=== PATIENT | female | born 2000 | race Two or more races ===

== ENCOUNTER 2024-09-07 10:33 | Outpatient (OUT) | payer SELFPAY ==
--- OUTSIDE RECORDS SUMMARY | 2024-08-31 11:36 | XMS_ITS | CCD ---
Author Organization [facility] ion Partnership [facility] Care Team Providers Care Dynamics Ax Technical Architect Name Role Phone DANA ENCARNACION Unavailable Vignesh Leahy Unavailable Unavailable [place] Unavailable Unavail able Mari Mcdonald Primary Care Physician UnavailMari Dunaway Unavailable Unavailable Mari Mcdonlad Primary Care Physician Unavaila Melodie Herzog Unavailable Halle Brady Unavailable Stan Norma [place] Primary Care Provider [phone] HALLE BRADY Referring Unavailable BUSHRA ALEGRE Referring Unavailable STAN, MUHAMID M Primary Care Unavailable BUSHRA ALEGRE Referring Unavailable STAN, MUHAMID M Primary Care Unavailable STAN, MUHAMID M Attending Unavailable STAN, MUHAMID M Primary Care Unavailable STAN, MUHAMID M Attending Unavailable STAN, MUHAMID M Referring Unavailable STAN, MUHAMID M Primary Care Unavailable BUSHRA ALEGRE Attending Unavailable STAN, MUHAMID M Referring Unavailable STAN, MUHAMID M Primary Care Unavailable BUSHRA ALEGRE Attending Unavailable STAN, MUHAMID M Referring Unavailable STAN, MUHAMID M Primary Care Unavailable STAN, MUHAMID M Referring Unavailable STAN, MUHAMID M Primary Care Unavailable BUSHRA ALEGRE Referring Unavail able STAN, MUHAMID M Primary Care Unavailable MACMAIN BUSHRA M Referring Unavailable STAN, MUHAMID M Primary Care Unavailable MACMAIN, BUSHRA M Referring Unavailable STAN, MUHAMID M Primary Care Unavailable Allergies Allergy Classification Reported Allergen(s) Allergy Type Date of Onset Reaction(s) Facility (1 source) No Known Medication Allergies; Translations: [No Known Medication Allergies] Propensity to adverse reactions to drug (disorder) [facility] Repository Medications Current Medications Medication Drug Class(es) Dates Sig (Normalized) Sig (Original) amoxicillin 500 mg oral tablet (1 source) Penicillin-class Antibacterial Start: 05-07-2017 take 1 tablet by mouth every twelve hours Amoxicillin 500 MG 1 tablet Orally every 12 hrs for 10 day(s) Apr, Active dapsone 0.05 mg/mg topical gel (5 sources) Sulfone Start: 03-23-2024 dapsone (ACZONE) 5 % topical gel 1(ONE) APPLICATION(S) TOPICAL 2(TWO) TIMES A DAY 03/23/2024 Active doxycycline hyclate 100 mg oral capsule (2 sources) Tetracycline-class Drug Start: 06-04-2024 End: 06-11-2024 take 1 capsule by mouth in the morning, then take 1 capsule by mouth at bedtime doxycycline (VIBRAMYCIN) 100 mg capsule Indications: Chlamydia Take 1 capsule (100 mg total) by mouth in the morning and 1 capsule (100 mg total) before bedtime. Do all this for 7 days. 14 capsule 06/04/2024 06/11/2024 Active Norgestimate-Ethin yl Estradiol (10 sources) Progestin, Estrogen Start: 04-09-2024 take 1 tablet by mouth once daily Norgestimate-Ethi nyl Estradiol (Tri-Sprintec (28)) 0.18/0.215/0.25 mg-35 mcg (28) tablet Active 1 TAB PO Daily April 09, 2024 12:00am Start: 02-11-2024 norgestimate-e thinyl estradioL (ORTHO TRI-CYCLEN,TRINESSA) 0.18/0.215/0.25 mg-35 mcg (28) per tablet 02/11/2024 Active Start: 05-02-2020 take 1 tablet by laine th once daily Tri-Sprintec (28) 0.18/0.215/0.25 mg-35 mcg (28) oral tablet 05/02/2020 take 1 tablet by oral route once daily metroNIDAZOLE 0.0075 mg/mg vaginal gel (7 sources) Nitroimidazole Antimicrobial Start: 04-28-2024 metroNIDAZOLE (Metrogel VaginaL) 0.75 % (37.5mg/5 gram) vaginal gel Indications: Acute vaginitis One applicator intravaginal every night for 7 days 490 g 04/28/2024 Active omeprazole 20 mg delayed release oral capsule (5 sources) Proton Pump Inhibitor Start: 04-09-2024 omeprazo le (PriLOSEC) 20 mg capsule Take by mouth. 04/09/2024 Active Tri-Sprintec (2 sources) Tri-Sprintec Act milly Completed/Discontinued Medications Medication Drug Class(es) Dates Sig (Normalized) Sig (Original) clindamycin 0.01 mg/mg topical gel (2 sources) Lincosamide Antibacterial Start: 05-02-2020 clindamycin phosphate 1 % topical gel 05/02/2020 Apply thin layer to affected areas twice daily for acne. dexamethasone 1 mg/ml / tobramycin 3 mg/ml ophthalmic suspension (1 source) Aminoglycoside Antibacterial, Corticosteroid Start: 04-12-2016 take 1 drop(s) into the eye(s) every six hours TobraDex 0.3-0.1 % 1 drop into affected eye Ophthalmic every 6 hrs for 7 days Mar, Not-Taking fluconazole 200 mg oral tablet (2 sources) Azole Antifungal Start: 05-02-2020 take 1 tablet by mouth every week fluconazole 200 mg oral tablet 05/02/2020 Take 1 tablet by mouth once weekly for 4 weeks. fluocinolone acetonide 0.1 mg/ml topical oil (2 sources) Corticosteroid Start: 05-02-2020 fluocinolone 0.01 % topical oil 05/02/2020 Apply to affected areas on scalp every other day; leave on 2-8 hours before washing. salicylic acid 0.06 mg/mg topical gel (2 sources) Start: 05-09-2020 End: 05-09-2020 salicylic acid 6 % topical gel 05/09/2020 05/09/2020 Apply small amount to affected areas on scalp; let sit 2-8 hours before washing. Start: 05-02-2020 salicylic acid 6 % topical gel 05/02/2020 Apply small amount to affected areas on scalp; let sit 2-8 hours before washing. Problems Active Problems Problem Classification Problem Date Documented Date Episodic/Chronic Bacterial infection; unspecified site (5 sources) Chlamydial infection; Translations: [Chlamydial infection, unspecified] Onset: 06-04-2024 06-04-2024 Episodic Contraceptive and procreative management (2 sources) Oral contraception; Translations: [Encounter for surveillance of contraceptive pills] Onset: 06-03-2024 06-03-2024 Episodic Immunizations and screening for infectious disease (8 sources) Contact with and (suspected) exposure to other viral communicable diseases; Translations: [Patient encounter status] Onset: 05-10-2021 Resolved: 05-10-2021 Episodic Inflammatory diseases of female pelvic organs (1 source) Acute vaginitis; Translations: [Acute vaginitis] Onset: 04-28-2024 Episodic Lymphadenitis (8 sources) Lymphadenopathy; Translations: [Enlarged lymph nodes, unspecified] Onset: 04-14-2024 04-09-2024 Episodic Other infections; including parasitic (1 source) History of chlamydial infection; Translations: [Personal history of other infectious and parasitic diseases] 07-13-2024 Episodic Other infections; including parasitic (1 source) Personal history of other infectious and parasitic diseases; Translations: [Personal history of other infectious and parasitic diseases] Onset: 07-13-2024 Episodic Other inflammatory condition of skin (7 sources) Psoriasis; Translations: [Psoriasis, unspecified] Onset: 04-28-2024 04-28-2024 Chronic Other screening for suspected conditions (not mental disorders or infectious disease) (4 sources) Cancer cervix screening status; Translations: [Encounter for screening for malignant neoplasm of cervix] Onset: 06-03-2024 06-03-2024 Episodic Other skin disorders (3 sources) Acne vulgaris Onset: 05-02-2020 Episodic Other upper respiratory disease (1 source) Pain in throat Onset: 04-28-2024 Episodic Other upper respiratory infections (4 sources) Acute upper respiratory infection, unspecified; Translations: [Acute pharyngitis] Onset: 05-10-2021 Resolved: 05-10-2021 Episodic Screening and history of mental health and substance abuse codes (2 sources) Standardized adult depression screening tool completed ; Translations: [Encounter for screening for depression] Onset: 06-03-2024 06-03-2024 Episodic Unclassified (1 source) Screening for std Onset: 07-13-2024 Unclassified (1 source) Annual Exam Onset: 06-03-2024 Unclassified (1 source) Establish Care Onset: 04-28-2024 Past or Other Problems Problem Classification Problem Date Documented Date Episodic/Chronic Mood disorders (7 sources) Mood disorders Onset: 04-28-2024 Resolved: 06-03-2024 04-28-2024 Other and unspecified benign neoplasm (2 sources) Melanocytic nevi of trunk Onset: 05-02-2020 Episodic Other inflammatory condition of skin (3 sources) Other specified papulosquamous disorders Onset: 05-02-2020 Results Test Name Value Interpretation Reference Range Facility CHLAMYDIA/GC BY PCRon 2023 CHLAMYDIA/GC BY PCR SPECIMEN SOURCE CERVIX CHLAMYDIA DNA(PCR) Negative (qualifier value) Chlamydia trachomatis not detected by nucleic acid amplification. This does not exclude the possibility of infection because results are dependent on adequate specimen collection. GONORRHOEAE DNA(PCR) Negative (qualifier value) Neisseria gonorrhoeae not detected by nucleic acid amplification. This does not exclude the possibility of infection because results are dependent on adequate specimen collection. Normal [facility] Comment on above: Performed By: #### C BCA, CMP, 35899-3, TSHR, 5157-3, 5159-9, 5124-3, 39242-5 #### [facility] ([id number]) [address], [address] [place] [address] TRICHOMONAS PCRon 07-13-2024 TRICHOMONAS PCR SPECIMEN SOURCE VAGINAL TRICHOMONAS PCR Not detected (qualifier value) Trichomonas vaginalis not detected NOTE Assay methodology is nucleic acid amplification by real-time PCR for detection of Trichomonas vaginalis DNA performed on [employer] GeneXpert Instrument System. Normal [facility] Comment on above: Performed By: #### T RKPCR #### [facility] ([id number]) [address], [address] [place] [address] HBV surface Ag IA [facility] 06-09 HEPATITIS B SURF AG Negative Normal NEG [facility] Comment on above: Performed By: #### 5 196-1, 94892-0, 34356-7, 56252-4 #### [facility] ([id number]) [address], [address] [place] [address] HCV Ab IA Qlon 06-09-2024 ANTI HCV W/PCR REFLX Non-Reactive Normal NRCT [facility] Comment on above: Result Comment: If recent infection suspected, recommend repeat testing (>2 months). Ptdgoa-ya-tcmxwo ratio is <0.80. Performed By: #### 5 196-1, 46798-5, 48724-3, 45269-6 #### [facility] ([id number]) [address] [place] [address], [address] [place] [address] HIV 1+2 Ab+HIV1 p24 Ag IA Ql on 06-09-2024 HIV 1 and 2 Ab/Ag Screen Non-Reactive Normal NRCT [facility] Comment on above: Result Comment: This information has been disclosed to you from confidential records protected from disclosure by state law. You shall make no further disclosure of this information without the specific, written and informed release of the individual to whom it pertains, or as otherwise permitted by state law. A general authorization for the release of medical or other information is not sufficient for the purpose of the release of HIV test results or diagnoses. Performed By: #### 5 196-1, 04467-7, 27280-3, 29731-0 #### [facility] ([id number]) [address] [place] [address], [address] [place] [address] T. pallidum IgG+IgM IA Ql (S )on 06-09-2024 Syphilis Total <0.2 Normal 0.0-0.8 [facility] Comment on above: Result Comment: NON REACTIVE No serologic evidence of infection to Treponema pallidum (syphilis). Repeat testing may be considered in patients with suspected acute or primary syphilis in 2 to 4 weeks. Performed By: #### 5 196-1, 31512-9, 13182-8, 79259-7 #### [facility] ([id number]) [address] [place] [address], [address] [place] [address] CHLAMYDIA/GC PCR, FLon 06-03 CHLAMYDIA/GC PCR, [place] CHLAMYDIA PCR, [place] Positive (qualifier value) Chlamydia trachomatis detected by nucleic acid amplification. GONORRHOEAE PCR, [place] Negative (qualifier value) Neisseria gonorrhoeae not detected by nucleic acid amplification. This does not exclude the possibility of infection because results are dependent on adequate specimen collection. Normal [facility] Comment on above: Performed By: #### C GTPCR #### [facility] ([id number]) [address] [place] [address], [address] [place] [address] Cytologyon 06-03-2024 Cytology Normal [facility] Comment on above: Result Comment: [facility] [address] [place] [address] Gynecologic Cytology Consultation Patient Name:MARION HU:2000 (Age: 24)Gender:FTaken:4Reported:06/20/2024hysician(s):Bushra Alegre C.N.P. ([phone])Copy To: Rec. #:[id number]: #[id number] Final Cytologic Interpretation ThinPrep Pap Test (Cervical): Satisfactory for evaluation. A transformation zone component is present. NEGATIVE FOR INTRAEPITHELIAL LESION OR MALIGNANCY. Numerous neutrophilic leukocytes are present. lrd/06/20/2024 Interpretation performed at [facility] [employer], [address] [place] [address], License number: [id number]. Electronically Signed Out By [facility] [place], (ASCP) Date of Last Menstrual Period: 05/19/24 Other Clinical Conditions: Oral contraceptive Z12.4 Screening for malignant neoplasm of cervix Source of Specimen ThinPrep Pap Test (Cervical) Thin Prep Pap (UPFITTER) Fee Code(s): G0145 The Pap test is a screening test with an inherent, but low, probability of error. The Pap test is primarily effective for the diagnosis and prevention of squamous cell carcinoma. Regular screening is critical for prevention. ThinPrep liquid-based slides, which meet the Medical Education Manager criteria for automated screening, have been screened by the ThinPrep Imaging System (as of 03/31/07) along with an additional manual rescreening by a tooth cutter spur and, if indicated, by a pathologist. VAGINITIS PANEL PCRon 2023 VAGINITIS PANEL PCR BACT. VAGINOSIS DNA Not detected (qualifier value) Qualitative results are reported based on detection and quantitation of targeted organism markers which include: Lactobacillus spp. (L. crispatus and L. jensenii), Gardnerella vaginalis, Atopobium vaginae, Bacterial Vaginosis Associated Bacteria-2 (BVAB-2) and Megasphaera-1 ISELA SPECIES DNA Not detected (qualifier value) Isela species not detected include: C. albicans, C. tropicalis, C. parapsilosis or C. dubliniensis ISELA KRUSEI DNA Not detected (qualifier value) No Isela krusei detected ISELA GLABRATA DNA Not detected (qualifier value) No Isela glabrata detected TRICHOMONAS VAG DNA Not detected (qualifier value) No Trichomonas vaginalis detected NOTE BD MAX Vaginal Panel has not been evaluated for patients under 18 years old. Results for these patients should be reviewed and assessed in accordance with clinical presentation to determine patient diagnosis. Normal [facility] Comment on above: Performed By: #### V PPCR #### [facility] ([id number]) [address] [place] [address], [address] [place] [address] CBC AND AUTO DIFFon 05-06-20 24 ABSOLUTE BASOPHIL 0.1 X10E9/L Normal 0.0-0.2 [facility] Comment on above: Performed By: #### C BCA, CMP, 23234-3, TSHR, 5157-3, 5159-9, 5124-3, 22403-4 #### [facility] ([id number]) [address], [address] [place] [address] ABSOLUTE NEUTROPHIL 6.8 X10E9/L High 1.5-6.6 [facility] Comment on above: Performed By: #### C BCA, CMP, 28685-5, TSHR, 5157-3, 5159-9, 5124-3, 80845-5 #### [facility] ([id number]) [address], [address] [place] [address] Basophils/100 WBC (Bld) 0.7 % Normal [facility] Comment on above: Performed By: #### C BCA, CMP, 81097-3, TSHR, 5157-3, 5159-9, 5124-3, 91439-8 #### [facility] ([id number]) [address], [address] [place] [address] Eosinophils (Bld) [#/Vol] 0.2 10*3/uL Normal 0.0-0.4 [facility] Comment on above: Performed By: #### C BCA, CMP, 06729-5, TSHR, 5157-3, 5159-9, 5124-3, 49231-9 #### [facility] ([id number]) [address], [address] [place] [address] Eosinophils/100 WBC (Bld) 1.6 % Normal [facility] Comment on above: Performed By: #### C BCA, CMP, 18954-4, TSHR, 5157-3, 5159-9, 5124-3, 76076-9 #### [facility] ([id number]) [address] [address] [place] [address] Erythrocyte distribution width (RBC) [Ratio] 13.5 % Normal 11.5-15.0 [facility] Comment on above: Performed By: #### C BCA, CMP, 29622-6, TSHR, 5157-3, 5159-9, 5124-3, 88503-7 #### [facility] ([id number]) [address], [address] [place] [address] Hematocrit (Bld) [Volume fraction] 40.7 % Normal 35-47 [facility] Comment on above: Performed By: #### C BCA, CMP, 25145-6, TSHR, 5157-3, 5159-9, 5124-3, 34457-8 #### [facility] ([id number]) [address], [address] [place] [address] Hemoglobin (Bld) [Mass/Vol] 13.9 g/dL Normal 11.7-15.5 [facility] Comment on above: Performed By: #### C BCA, CMP, 19902-0, TSHR, 5157-3, 5159-9, 5124-3, 03665-8 #### [facility] ([id number]) [address], [address] [place] [address] Lymphocytes (Bld) [#/Vol] 2.3 10*3/uL Normal 1.0-3.5 [facility] Comment on above: Performed By: #### C BCA, CMP, 17685-9, TSHR, 5157-3, 5159-9, 5124-3, 84412-2 #### [facility] ([id number]) [address], [address] [place] [address] Lymphocytes/100 WBC (Bld) 23.1 % Normal [facility] Comment on above: Performed By: #### C BCA, CMP, 05220-6, TSHR, 5157-3, 5159-9, 5124-3, 70965-0 #### [facility] ([id number]) [address], [address] [place] [address] MCH (RBC) [Entitic mass] 31.1 pg Normal 27-34 [facility] Comment on above: Performed By: #### C BCA, CMP, 30160-6, TSHR, 5157-3, 5159-9, 5124-3, 13165-5 #### [facility] ([id number]) [address], [address] [place] [address] MCHC (RBC) [Mass/Vol] 34.2 g/dL Normal 32-36 [facility] Comment on above: Performed By: #### C BCA, CMP, 58149-9, TSHR, 5157-3, 5159-9, 5124-3, 43051-5 #### [facility] ([id number]) [address], [address] [place] [address] MCV (RBC) [Entitic vol] 91 fL Normal 80-100 [facility] Comment on above: Performed By: #### C BCA, CMP, 78120-4, TSHR, 5157-3, 5159-9, 5124-3, 17814-8 #### [facility] ([id number]) [address], [facility] [address] [place] [address] Monocytes (Bld) [#/Vol] 0.7 10*3/uL Normal 0-0.9 [facility] Comment on above: Performed By: #### C BCA, CMP, 47205-6, TSHR, 5157-3, 5159-9, 5124-3, 10665-5 #### [facility] ([id number]) [address], [address] [place] [address] Monocytes/100 WBC (Bld) 7.1 % Normal [facility] Comment on above: Performed By: #### C BCA, CMP, 31370-8, TSHR, 5157-3, 5159-9, 5124-3, 11623-8 #### [facility] ([id number]) [address], [facility] [address] [place] [address] Neutrophils/100 WBC (Bld) 67.5 % Normal [facility] Comment on above: Performed By: #### C BCA, CMP, 08469-6, TSHR, 5157-3, 5159-9, 5124-3, 42413-0 #### [facility] ([id number]) [address], [address] [place] [address] Platelet mean volume (Bld) [Entitic vol] 6.9 fL Low 7-12 [facility] Comment on above: Performed By: #### C BCA, CMP, 01398-9, TSHR, 5157-3, 5159-9, 5124-3, 99183-7 #### [facility] ([id number]) [address], [address] [address] Platelets (Bld) [#/Vol] 418 10*3/uL Normal 150-450 [facility] Comment on above: Performed By: #### C BCA, CMP, 41659-2, TSHR, 5157-3, 5159-9, 5124-3, 69572-9 #### [facility] ([id number]) [address], [address] [address] RBC COUNT 4.47 X10E12/L Normal 3.80-5.20 [facility] Comment on above: Performed By: #### C BCA, CMP, 02677-6, TSHR, 5157-3, 5159-9, 5124-3, 96710-7 #### [facility] ([id number]) [address], [address] [address] WBC (Bld) [#/Vol] 10.1 10*3/uL Normal 4.0-11.0 [facility] Comment on above: Performed By: #### C BCA, CMP, 76104-1, TSHR, 5157-3, 5159-9, 5124-3, 99941-0 #### [facility] ([id number]) [address], [address] [address] CMV IgG IA [facility] 05-06-2024 CYTOMEGALOVIRUS IgG <0.2 Normal <0.9 [facility] Comment on above: Result Comment: Interpretation-------- <0.9 Negative 0.9 - 1.0 Equivocal >1.0 Positive Performed By: #### C BCA, CMP, 97592-4, TSHR, 5157-3, 5159-9, 5124-3, 66581-9 #### [facility] ([id number]) [address] [address] CMV IgM IA Qlon 05-06-2024 CYTOMEGALOVIRUS IgM 0.3 AI Normal <0.9 [facility] Comment on above: Result Comment: Interpretation-------- <0.9 Negative 0.9 - 1.0 Equivocal >1.0 Positive NOTE The following results were obtained with the [employer] 2[address] ToRC IgM test. Results obtained from other [employer] assay methods may not be used interchangeably. Performed By: #### C BCA, CMP, 59085-8, TSHR, 5157-3, 5159-9, 5124-3, 91783-2 #### [facility] ([id number]) [address] [address] COMPREHENSIVE METABOLIC PANE [facility] 05-06-2024 Albumin [Mass/Vol] 4.2 g/dL Normal 3.2-5.3 [facility] Comment on above: Performed By: #### C BCA, CMP, 09570-1, TSHR, 5157-3, 5159-9, 5124-3, 13210-7 #### [facility] ([id number]) [address] [address] ALP [Catalytic activity/Vol] 50 U/L Normal 39-130 [facility] Comment on above: Performed By: #### C BCA, CMP, 25747-2, TSHR, 5157-3, 5159-9, 5124-3, 74871-8 #### [facility] ([id number]) [address] [address] [place] [address] ALT [Catalytic activity/Vol] 14 U/L Normal 0-31 [facility] Comment on above: Performed By: #### C BCA, CMP, 00638-4, TSHR, 5157-3, 5159-9, 5124-3, 38680-7 #### [facility] ([id number]) [address], [address] [place] [address] Anion gap [Moles/Vol] 9 mmol/L Normal 5-15 [facility] Comment on above: Performed By: #### C BCA, CMP, 32864-1, TSHR, 5157-3, 5159-9, 5124-3, 81213-6 #### [facility] ([id number]) [address], [address] [place] [address] AST [Catalytic activity/Vol] 16 U/L Normal 0-41 [facility] Comment on above: Performed By: #### C BCA, CMP, 43230-1, TSHR, 5157-3, 5159-9, 5124-3, 06905-9 #### [facility] ([id number]) [address], [address] [place] [address] Bilirubin [Mass/Vol] 0.4 mg/dL Normal 0.3-1.2 [facility] Comment on above: Performed By: #### C BCA, CMP, 34905-8, TSHR, 5157-3, 5159-9, 5124-3, 72660-0 #### [facility] ([id number]) [address], [address] [place] [address] Calcium [Mass/Vol] 9.0 mg/dL Normal 8.5-10.5 [facility] Comment on above: Performed By: #### C BCA, CMP, 34262-3, TSHR, 5157-3, 5159-9, 5124-3, 87031-5 #### [facility] ([id number]) [address], [address] [place] [address] Chloride [Moles/Vol] 103 mmol/L Normal 98-109 [facility] Comment on above: Performed By: #### C BCA, CMP, 84698-1, TSHR, 5157-3, 5159-9, 5124-3, 54559-3 #### [facility] ([id number]) [address], [address] [place] [address] CO2 [Moles/Vol] 25 mmol/L Normal 22-32 [facility] Comment on above: Performed By: #### C BCA, CMP, 21686-8, TSHR, 5157-3, 5159-9, 5124-3, 17530-4 #### [facility] ([id number]) [address], [address] [place] [address] Creatinine [Mass/Vol] 0.97 mg/dL Normal 0.40-1.00 [facility] Comment on above: Result Comment: METH OD TRACEABLE TO IDMS STANDARD Performed By: #### C BCA, CMP, 88485-3, TSHR, 5157-3, 5159-9, 5124-3, 99575-3 #### [facility] ([id number]) [address], [address] [place] [address] GFR/1.73 sq M.predicted among non-blacks MDRD (S/P/Bld) [Vol rate/Area] 85 mL/min/{1.73_m2} Normal >59 [facility] Comment on above: Result Comment: Reported eGFR is based on the CKD-EPI 2020 equation that does not use a race coefficient. Performed By: #### C BCA, CMP, 46341-7, TSHR, 5157-3, 5159-9, 5124-3, 88471-9 #### [facility] ([id number]) [address], [address] [place] [address] Glucose [Mass/Vol] 77 mg/dL Normal 65-99 [facility] Comment on above: Performed By: #### C BCA, CMP, 59892-5, TSHR, 5157-3, 5159-9, 5124-3, 10344-5 #### [facility] ([id number]) [address], [address] [place] [address] Potassium [Moles/Vol] 3.8 mmol/L Normal 3.5-5.0 [facility] Comment on above: Performed By: #### C BCA, CMP, 81640-6, TSHR, 5157-3, 5159-9, 5124-3, 79299-1 #### [facility] ([id number]) [address], [facility] [address] [place] [address] Protein [Mass/Vol] 6.9 g/dL Normal 6.0-8.0 [facility] Comment on above: Performed By: #### C BCA, CMP, 09027-7, TSHR, 5157-3, 5159-9, 5124-3, 85943-4 #### [facility] ([id number]) [address], [address] [place] [address] Sodium [Moles/Vol] 137 mmol/L Normal 134-146 [facility] Comment on above: Performed By: #### C BCA, CMP, 10956-8, TSHR, 5157-3, 5159-9, 5124-3, 85318-4 #### [facility] ([id number]) [address], [address] [place] [address] Urea nitrogen [Mass/Vol] 15 mg/dL Normal 5-23 [facility] Comment on above: Performed By: #### C BCA, CMP, 72491-3, TSHR, 5157-3, 5159-9, 5124-3, 05189-0 #### [facility] ([id number]) [address], [facility] [address] [place] [address] EBV capsid IgG IA Qn (S)on JATIN GAY VCA IgG 6.7 AI High <0.9 [facility] Comment on above: Result Comment: Interpretation-------- <0.9 Negative 0.9 - 1.0 Equivocal >1.0 Positive Performed By: #### C BCA, CMP, 61013-1, TSHR, 5157-3, 5159-9, 5124-3, 48369-6 #### [facility] ([id number]) [address] [facility] [place] [address] EBV capsid IgM IA Qn (S)on JATIN GAY VCA IgM 1.1 AI High <0.9 [facility] Comment on above: Result Comment: Interpretation-------- <0.9 Negative 0.9 - 1.0 Equivocal >1.0 Positive Performed By: #### C BCA, CMP, 09783-5, TSHR, 5157-3, 5159-9, 5124-3, 23762-3 #### [facility] ([id number]) [address] [facility] [place] [address] Lipid 1996 panelon 4 Cholesterol [Mass/Vol] 157 mg/dL Normal 150-200 [facility] Comment on above: Performed By: #### C BCA, CMP, 80837-5, TSHR, 5157-3, 5159-9, 5124-3, 37093-0 #### [facility] ([id number]) [address] [facility] [place] [address] Cholesterol in HDL [Mass/Vol] 72 mg/dL Normal >39 [facility] Comment on above: Result Comment: HDL <40 mg/dL - High Risk HDL > or = 40mg/dL- Desirable HDL >60 mg/dL - Negative Risk Performed By: #### C BCA, CMP, 25799-4, TSHR, 5157-3, 5159-9, 5124-3, 18326-5 #### [facility] ([id number]) [address], [address] [place] [address] Cholesterol in LDL [Mass/Vol] 67 mg/dL Normal <130 [facility] Comment on above: Result Comment: LDL <100 mg/dL - Desirable LDL >160 mg/dL - High Risk Performed By: #### C BCA, CMP, 13376-9, TSHR, 5157-3, 5159-9, 5124-3, 00712-5 #### [facility] ([id number]) [address], [address] [place] [address] Cholesterol in VLDL [Mass/Vol] 18 mg/dL Normal 0-30 [facility] Comment on above: Performed By: #### C BCA, CMP, 29055-3, TSHR, 5157-3, 5159-9, 5124-3, 59112-2 #### [facility] ([id number]) [address], [address] [place] [address] CHOLESTEROL:HDL 2.2 Normal 1.0-5.0 [facility] Comment on above: Performed By: #### C BCA, CMP, 41153-8, TSHR, 5157-3, 5159-9, 5124-3, 14093-9 #### [facility] ([id number]) [address], [address] [place] [address] Triglyceride [Mass/Vol] 88 mg/dL Normal 27-150 [facility] Comment on above: Performed By: #### C BCA, CMP, 79272-3, TSHR, 5157-3, 5159-9, 5124-3, 06215-1 #### [facility] ([id number]) [address], [address] [place] [address] TSH WITH REFLEXon 05-06-2024 TSH 1.04 uIU/mL Normal 0.49-4.67 [facility] Comment on above: Performed By: #### C BCA, CMP, 50666-6, TSHR, 5157-3, 5159-9, 5124-3, 88450-7 #### [facility] ([id number]) [address], [address] [place] [address] US THYROIDon 04-16-2024 US THYROID US THYROID CLINICAL INFORMATION: Swelling of lymph nodes. The right submandibular lump, sore throat for several weeks TECHNIQUE: Real time sonography of the thyroid gland performed. COMPARISON: No relevant prior studies available. FINDINGS: Thyroid size: Normal Right thyroid lobe measures: 4.3 x 1.2 x 1.9 cm Left thyroid lobe measures: 4.7 x 1.2 x 1.5 cm Isthmus measures 0.2 cm. Overall thyroid texture: Homogeneous 0.3 cm cyst within the superior left thyroid lobe. TR 1 and does not require dedicated follow-up. In the right submandibular region, there is a 3.2 x 1.6 x 0.7 cm lymph node with preserved fatty hilum and hilar flow on color Doppler. No suspicious features. IMPRESSION: * Prominent lymph node in the right submandibular lesion without suspicious features. Most likely reactive in the setting of recent sore throat. Less likely but may be infectious, inflammatory, granulomatous, or neoplastic. Close clinical follow-up recommended to document resolution within 6 weeks. * Unremarkable sonographic appearance of the thyroid. Approved by Resident Carlos Loving MD on 04/16/2024 8:07 AM I, Ulysses Wallis MD have personally reviewed the image(s) and agree with and/or edited the report Finalized by Ulysses Wallis MD on 04/16/2024 8:46 AM Normal [facility] COVID Quick Testingon 2020 Result Negative [email or web address] Other Ambulatory Patient Education on 08-09-2017 Ambulatory Patient Education Patient Education MaterialsName: Marion Hu Current Date: 08/09/2017 19:54:17 [place] 2000 following sheet(s) are the Patient Education Leaflets for Marion HuAmbulatoryContact DermatitisContact dermatitis is a skin rash caused by something that touches the skin and makes it irritated and inflamed. Your skin may be red, swollen, dry, and may be cracked. Blisters may form and ooze. The rash will itch.Contact dermatitis can form on the face and neck, backs of hands, forearms, genitals, and lower legs.People can get contact dermatitis from lots of sources. These include:? Plants such as poison alena, oak, or sumac? Chemicals in hair dyes and rinses, soaps, solvents, waxes, fingernail mongolian, and deodorants? Jewelry or watchbands made of nickelContact dermatitis is not passed from person to person.Talk with your healthcare provider about what may have caused the rash. A type of allergy testing called patch testing may be used to discover what you are allergic to. You will need to avoid the source of your rash in the future to prevent it from coming back.Treatment is done to relieve itching and prevent the rash from coming back. The rash should go away in a few days to a few weeks.Home careYour healthcare provider may prescribe medicine to relieve swelling and itching. Follow all instructions when using these medicines.General care:? Avoid anything that heats up your skin, such as hot showers or baths, or direct sunlight. This can make itching worse.? Apply cold compresses to soothe your sores to help relieve your symptoms. Do this for 30 minutes 3 to 4 times a day. You can make a cold compress by soaking a cloth in cold water. Squeeze out excess water. You can add colloidal oatmeal to the water to help reduce itching. For severe itching in a small area, apply an ice pack wrapped in a thin towel. Do this for 20 minutes 3 to 4 times a day.? You can also try wet dressings. One way to do this is to wear a wet piece of clothing under a dry one. Wear a damp shirt under a dry shirt if your upper body is affected. This can relieve itching and prevent you from scratching the affected area.? You can also help relieve large areas of itching by taking a lukewarm bath with colloidal oatmeal added to the water.? Use hydrocortisone cream for redness and irritation, unless another medicine was prescribed. You can also use benzocaine anesthetic cream or spray. Calamine lotion can also relieve mild symptoms.? Use oral diphenhydramine to help reduce itching. You can buy this antihistamine at drug and grocery stores. It can make you sleepy, so use lower doses during the daytime. Or you can use loratadine. This is an antihistamine that will not make you sleepy. Do not use diphenhydramine if you have glaucoma or have trouble urinating due to an enlarged prostate.? If a plant causes your rash, make sure to wash your skin and the clothes you were wearing when you came into contact with the plant. This is to wash away the plant oils that gave you the rash and prevent more or worse symptoms.? Stay away from the substance or object that causes your symptoms. If you can't avoid it, wear gloves or some other type of protection.Follow-up careFollow up with your healthcare provider, or as advised.When to seek medical adviceCall your healthcare provider right away if any of these occur:? Spreading of the rash to other parts of your body? Severe swelling of your face, eyelids, mouth, throat or tongue? Trouble urinating due to swelling in the genital area? Fever of 100.4?F (38?C) or higher? Redness or swelling that gets worse? Pain that gets worse? Foul-smelling fluid leaking from the skin? Yellow-brown crusts on the open blisters? [id number] The [employer]. [address] [place] [address], [place] [address]. All rights reserved. This information is not intended as a substitute for professional medical care. Always follow your healthcare professional's instructions. Normal [facility] Urgent Care Office/Clinic No angelo 08-09-2017 Urgent Care Office/Clinic Note Chief Complaint Rash on neck for over 2 weeks. Denies changing diet, soaps, detergents, creams.History of Present Illness Patient presents today complaining of 2 week history of rash to anterior neck and anterior chest. Denies new soaps, lotions, or medications. States that symptoms started become worse when she applied tea tree oil to the areas. Admits to pruritus at that time. States her skin is usually pretty sensitive.Review of Systems General: The patient denies fever, no unexplained changes in weight, fatigue, headache or dizziness. HEENT: denies changes in hearing, ear pain, rhinorrhea, sinus pressure. Denies productive cough. Denies double vision, blurred vision or eye pain. Cardiovascular: No chest pain, arrhythmia, or palpitations Pulmonary: No shortness of breath, wheezing, or dry cough GI: No nausea, vomiting or diarrhea. No abdominal discomfortPhysical Exam Vitals & Measurements T: 36.7 ?C (Oral) RR: 18 BP: 112/72 SpO2: 98 HT: 161 cm WT: 53 kg DOSE WT: 53 kg BMI: 20.45 Gen.: Atraumatic normocephalic. Dressed appropriate for season. No acute distress. Eye: Free of drainage. CV: RRR, S1,S2, free of rubs murmurs or gallops Resp: Lungs clear to auscultation bilaterally, free of adventitious breath sounds. Anterior chest and neck: Erythematous flat lesions are noted. No particular pattern or shakes. No vesicles, pustules or palpable lesions. Skin is very dry in the area due to application of tpwd-[id number]-[id number] ointments. Additional Vitals Body Mass Index Measured: 20.45 kg/m2 Peripheral Pulse Rate: 74 bpmAssessment/Plan 1. Contact dermatitis Take medication as directed. To apply Vaseline to area within 3 minutes of shower. To follow-up with pbx repairer if no improvements. If severe symptoms may go to ER. Ordered: triamcinolone topical, 1 kit, Topical, BID, X 14 days, # 30 g, 0 Refill(s), 08/23/17 19:49:00 EST, Pharmacy: [id number] List/Past Medical History Ongoing No chronic problems Historical No qualifying dataMedications triamcinolone 0.1% topical cream, 1 kit, Topical, BIDAllergies No Known Medication AllergiesSocial History Tobacco Never smokerFamily History Family history is unknownDiagnostic Results No qualifying data available. No qualifying data available. No qualifying data available. No qualifying data available.Electronically signed by Scarb rough La NIEVES 08/09/17 19:51 EST [facility] Ambulatory Patient Education on 02-09-2017 Ambulatory Patient Education Patient Education MaterialsName: Marion Hu Current Date: 02/09/2017 17:17:45 [place] 2000 following sheet(s) are the Patient Education Leaflets for Marion Hu [facility] Urgent Care Office/Clinic No angelo 02-09-2017 Urgent Care Office/Clinic Note Chief Complaint Patient needs a sports physical today.History of Present Illness Patient is a 16 year old female who presents with father for a sports physical for volleyball and track. All of her immunizations are up to date. She has never had a concussion or head injury. She has never had a musculoskeletal injury.Review of Systems HEENT: No complaints of headache no redness of the eyes or discharge no changes in vision no discharge from the nose is noted no complaints of laryngitis no complaints of swollen glands are tenderness in the neck area. No complaints of ear pain or drainage from the ears Skin: No rashes Respiratory: No shortness of breath Cardiac: Denies chest pain GI: No nausea vomiting diarrhea or abdominal pain no dysuria Muscle skeletal: No joint pain or back painPhysical Exam Vitals & Measurements T: 36.1 ?C (Oral) RR: 20 BP: 110/66 SpO2: 99 HT: 160 cm WT: 54.5 kg DOSE WT: 54.5 kg BMI: 21.29 Head: No evidence of any dermatitis of the scalp is seen no deformities or tenderness upon palpation noted Eyes: Pupils are equally round and respond to light conjunctiva reveal no redness there is no drainage seen or swelling of the eyelids Nose: Clear no rhinitis Ears: TMs are visible no redness good light reflex canals are clear with no swelling or drainage Pharynx: No redness swelling or exudate no abnormal dental caries noted Neck: No enlargement of the thyroid gland or any cervical chain lymph node enlargement Heart sounds: Regular with no murmurs including with Valsalva maneuver no extrasystoles Lungs: Clear with no wheezes rales or rhonchi good air exchange bilaterally Abdomen: Soft no tenderness upon palpation no organomegaly or masses noted Extremities: Good full range of motion without any limitations or discomfort. Good strength against resistance in the upper and lower extremities. Back exam: No evidence of scoliosis. No limitation in range of motion at the waist or the neck. Skin: No rashes noted Menses regular with a 28 day cycle. Additional Vitals Body Mass Index Measured: 21.29 kg/m2 Peripheral Pulse Rate: 84 bpmAssessment/Plan 1. Sports physical Plan: Wellness information given to parent. Patient to follow up with PCP as needed.Problem List/Past Medical History Ongoing No chronic problems Historical No qualifying dataMedications No active medicationsAllergies No Known Medication AllergiesSocial History Tobacco Never smokerFamily History Family history is unknownDiagnostic Results No qualifying data available. No qualifying data available. No qualifying data available. No qualifying data available.Electronically signed by Dana Moreira CNP 02/09/17 17:16 EDT Normal [facility] Vital Signs Date Time Vital Sign Value Performing Clinician Facility 07-13-2024 09:07-0500 Body height 160 cm Bushra GONZALEZ Work Phone: [facility] 07-13-2024 09:07-0500 Body mass index (BMI) [Ratio] 25.15 kg/m2 Bushra GONZALEZ Work Phone: [facility] 07-13-2024 09:07-0500 Body weight 64.41 kg Bushra Alegre [employer] Work Phone: [facility] 07-13-2024 09:07-0500 Diastolic blood pressure 74 mm[Hg] Bushra Garibayin [employer] Work Phone: [facility] 07-13-2024 09:07-0500 Systolic blood pressure 122 mm[Hg] Bushra Garibayin [employer] Work Phone: [facility] 06-03-2024 10:08-0500 Body height 160 cm Bushra Garibayin [employer] Work Phone: [facility] 06-03-2024 10:08-0500 Body mass index (BMI) [Ratio] 24.66 kg/m2 Bushra Garibayin [employer] Work Phone: [facility] 06-03-2024 10:08-0500 Body weight 63.14 kg Bushra Garibayin [employer] Work Phone: [facility] 06-03-2024 10:08-0500 Diastolic blood pressure 74 mm[Hg] Bushra Garibayin [employer] Work Phone: [facility] 06-03-2024 10:08-0500 Systolic blood pressure 116 mm[Hg] Bushra Garibayin [employer] Work Phone: [facility] 04-09-2024 09:33-0400 Body height 160.02 cm [facility] 04-09-2024 09:33-0400 Body mass index (BMI) [Ratio] 23.7 kg/m2 [facility] 04-09-2024 09:33-0400 Body weight 60.78 kg [facility] 04-09-2024 09:33-0400 Diastolic blood pressure 68 mm[Hg] [facility] 04-09-2024 09:33-0400 Heart rate 79 /min [facility] 04-09-2024 09:33-0400 Systolic blood pressure 105 mm[Hg] [facility] 09-12-2022 11:30-0500 Body height 160.02 cm Halle Brady Other [email or web address] Other 09-12-2022 11:30-0500 Body mass index (BMI) [Ratio] 24.62 kg/m2 Halle Brady Other [email or web address] Other 09-12-2022 11:30-0500 Body weight 63.05 kg Halle Bardy Other [email or web address] Other 09-12-2022 11:30-0500 Diastolic blood pressure 64 mm[Hg] Halle Brady Other [email or web address] Other 09-12-2022 11:30-0500 Systolic blood pressure 122 mm[Hg] Halle Brady Other [email or web address] Other 05-10-2021 10:15-0400 Body height 160.02 cm Melodie Lovemond Other [email or web address] Other 05-10-2021 10:15-0400 Body mass index (BMI) [Ratio] 23.91 kg/m2 Melodie Lovemond Other [email or web address] Other 05-10-2021 10:15-0400 Body temperature 97.5 [degF] Melodie Lovemond Other [email or web address] Other 05-10-2021 10:15-0400 Body weight 61.24 kg Melodie Lovemond Other [email or web address] Other 05-10-2021 10:15-0400 Respiratory rate 18 /min Melodie Lovemond Other [email or web address] Other 05-10-2021 10:15-0400 SaO2% (BldA) [Mass fraction] 98 % Melodei Lovemond Other [email or web address] Other Encounters Encounter Date Encounter Type Care Provider Facility Start: 07-13-2024 End: 07-13-2024 ambulatory [facility] Start: 07-13-2024 End: 07-13-2024 ambulatory [facility] Start: 07-13-2024 End: 07-13-2024 Office outpatient visit 15 minutes Bushra Alegre [employer] Work Phone: [facility] Comment on above: Routine screening fo r STI (sexually transmitted infection) (Primary Dx); History of chlamydia infection Start: 07-13-2024 End: 07-13-2024 ambulatory [facility] Start: 06-16-2024 End: 06-17-2024 Telephone encounter Tesha Conti LPN Work Phone: [facility] Comment on above: Follow-up Start: 06-09-2024 End: 06-09-2024 ambulatory [facility] Start: 06-08-2024 End: 06-08-2024 Orders Only Bushra Lisandro Sis [employer] Work Phone: [facility] Comment on above: Screening examinatio n for STI (Primary Dx) Start: 06-04-2024 End: 06-04-2024 Orders Only Bushra Lisandro Sis [employer] Work Phone: [facility] Comment on above: Chlamydia (Primary D x) Start: 06-03-2024 Encounter for gynecological examination (general) (routine) without abnormal findings [facility] Start: 06-03-2024 End: 06-03-2024 Initial preventive medicine new pt age 18-39yrs Bushra Alegre [employer] Work Phone: [facility] Comment on above: Women's annual routi ne gynecological examination (Primary Dx); Standardized adult depression screening tool completed; Well woman exam; Cervical cancer screening; Oral contraceptive pill surveillance; Routine screening for STI (sexually transmitted infection) Start: 06-03-2024 End: 06-03-2024 Patient encounter procedure Bushra Alegre [employer] Work Phone: [facility] Work Phone: Start: 06-03-2024 End: 06-03-2024 ambulatory BUSHRA Mcmahon [facility] Start: 06-03-2024 End: 06-03-2024 ambulatory BUSHRA MARIE [facility] Start: 05-11-2024 End: 05-11-2024 Telephone encounter Nyla Jonh [facility] Start: 05-06-2024 End: 05-06-2024 Clinical Support Norma Pierce MD Work Phone: [facility] Comment on above: Acute pharyngitis, u nspecified etiology (Primary Dx) Start: 04-28-2024 End: 04-28-2024 ambulatory NORMA PIERCE [facility] Start: 04-14-2024 End: 04-14-2024 ambulatory HALLE BRADY [facility] Start: 04-09-2024 End: 04-09-2024 ambulatory [facility] Work Phone: Start: 04-09-2024 End: 04-09-2024 Patient encounter procedure [facility] Work Phone: Start: 09-12-2022 End: 09-12-2022 ambulatory Halle Brady Other [email or web address] Other Start: 09-12-2022 Encounter for genera l adult medical examination without abnormal findings Halle Brady [facility] Start: 09-12-2022 Initial preventive medicine new pt age 18-39yrs Halle Brady [facility] Start: 05-10-2021 (URG) Urgent Care Visit Melodie edouard [facility] Start: 05-31-2020 Office outpatient vi sit 15 minutes Mari Mcdonald Other [facility] Office Start: 05-02-2020 Office outpatient ne w 30 minutes Mari Mcdonald Other [facility] Office Start: 08-09-2017 End: 08-09-2017 Ambulatory Vignesh Bynum Facility:[facility] Start: 02-09-2017 End: 02-09-2017 Ambulatory DANA MARINA Facility:[facility] Procedures Date Procedure Procedure Detail Performing Clinician Start: 06-03-2024 Adult depression scr eening assessment Bushra Alegre [employer] Work Phone: Start: 06-03-2024 Microscopic observat ion [Identifier] in Cervix by Cyto stain Bushra Alegre [employer] Work Phone: Start: 04-28-2024 Adult depression scr eening assessment Norma Pierce MD Work Phone: Start: 05-31-2020 Doc meds verified w/ pt or re Mari Mcdonald Start: 05-02-2020 Doc meds verified w/ pt or re Mari Mcdonald Plan of Treatment Date Care Activity Detail Author Start: 06-03-2027 Screening for malign ant neoplasm of cervix Pap Smear [facility] Start: 06-03-2025 Adult BMI Screening Adult BMI Screen ing [facility] Start: 06-03-2025 Depression Screening Depression Scre ening [facility] Start: 06-03-2025 Screening for Chlamy kian trachomatis Chlamydia Screening [facility] Start: 06-03-2025 Tobacco Screening Tobacco Screening [facility] Start: 04-28-2025 Adult BMI Screening Adult BMI Screen ing [facility] Start: 04-28-2025 Depression Screening Depression Scre ening [facility] Start: 04-28-2025 Tobacco Screening Tobacco Screening [facility] Start: 12-22-2024 DTaP,Tdap and Td Vaccines (7 - Td or Tdap) DTaP,Tdap and Td Vaccines (7 - Td or Tdap) [facility] Start: 07-13-2024 End: 07-13-2025 Chlamydia/GC by PCR Sandor Swab Chlamydia/GC by PCR Sandor Swab Microbiology Routine Routine screening for STI (sexually transmitted infection) Expected: 07/13/2024 (Approximate), Expires: 07/13/2025 [facility] Comment on above: Expected: 07/13/2024 (Approximate), Expires: 07/13/2025 Start: 07-13-2024 End: 07-13-2025 Trichomonas by PCR Trichomonas by PCR Microbiology Routine Routine screening for STI (sexually transmitted infection) Expected: 07/13/2024 (Approximate), Expires: 07/13/2025 [facility] Comment on above: Expected: 07/13/2024 (Approximate), Expires: 07/13/2025 Start: 06-25-2024 End: 06-25-2024 Patient encounter procedure 06/25/2024 9:15 AM EST Office Visit [facility] [address] [place] [address] Bushra Alegre, PUBLICITY PERSON-CROWN ASSEMBLY MACHINE SET UP MECHANIC [address] [place], [place] [id number] [facility] Start: 05-14-2024 End: 05-14-2024 Patient encounter procedure 05/14/2024 8:30 AM EDT Office Visit [facility] [address] [place] [address] Grisel Owens, PUBLICITY PERSON-CROWN ASSEMBLY MACHINE SET UP MECHANIC [address] [place], [place] [id number] [facility] Start: 03-15-2024 COVID-19 Vaccine ( season) COVID-19 Vaccine ( season) [facility] Start: 03-15-2024 COVID-19 Vaccine ( season) COVID-19 Vaccine ( season) [facility] Start: 2023 Screening for malign ant neoplasm of cervix Pap Smear [facility] Start: 2020 Adult BMI Follow Up Plan Adult BMI Follow Up Plan [facility] Start: 2002 Screening for Chlamy kian trachomatis Chlamydia Screening [facility] End: 06-03-2025 Chlamydia/Gonorrhoeae by PCR, Fluid Chlamydia/Gonorrhoeae by PCR, Fluid Microbiology Routine Cervical cancer screening 1 Occurrences starting 06/03/2024 until 06/03/2025 [facility] Comment on above: 1 Occurrences starti ng 06/03/2024 until 06/03/2025 End: 06-03-2025 Cytopathology procedure, preparation of smear, genital source Pap Smear Pathology and Cytology Routine Cervical cancer screening 1 Occurrences starting 06/03/2024 until 06/03/2025 [facility] Work Phone: Comment on above: 1 Occurrences starti ng 06/03/2024 until 06/03/2025 End: 06-08-2025 Hepatitis B surface antigen Hepatitis B surface antigen Lab Routine Screening examination for STI 1 Occurrences starting 06/08/2024 until 06/08/2025 [facility] [employer] Comment on above: 1 Occurrences starti ng 06/08/2024 until 06/08/2025 End: 06-08-2025 Hepatitis C(HCV) Ab w/ Reflex to PCR Hepatitis C(HCV) Ab w/ Reflex to PCR Lab Routine Screening examination for STI 1 Occurrences starting 06/08/2024 until 06/08/2025 [employer] Work Phone: Comment on above: 1 Occurrences starti ng 06/08/2024 until 06/08/2025 End: 06-08-2025 HIV 1&2 AB/AG Screen (P24 AG) HIV 1&2 AB/AG Screen (P24 AG) Lab Routine Screening examination for STI 1 Occurrences starting 06/08/2024 until 06/08/2025 [facility] Comment on above: 1 Occurrences starti ng 06/08/2024 until 06/08/2025 End: 06-08-2025 Syphilis Total(Unknown Syphilis Status) Syphilis Total(Unknown Syphilis Status) Lab Routine Screening examination for STI 1 Occurrences starting 06/08/2024 until 06/08/2025 [facility] on above: 1 Occurrences starti ng 06/08/2024 until 06/08/2025 End: 06-03-2025 Vaginitis Panel PCR Vaginitis Panel PCR Microbiology Routine Routine screening for STI (sexually transmitted infection) 1 Occurrences starting 06/03/2024 until 06/03/2025 [facility] Comment on above: 1 Occurrences starti ng 06/03/2024 until 06/03/2025 Immunizations Immunization Date Immunization Notes Care Provider Jimbo arnold 04-28-2024 influenza, injectabl e, [place] delores canine kidney, preservative free Norma Pierce MD Work Phone: [facility] Payers Date Payer Category Payer Commercial Managed C are - [employer] [id number] 2023 Unknown [id number] 2021 [employer] Managed Care - Other ANTH [id number] 2021 Unknown [id number] 2017 Self-pay 2016 Unknown 2002 Unknown [id number]. [facility] 2002 Unknown [id number]. [facility] 2002 Unknown [id number]. [facility] 2002 Unknown [id number]. [facility] Unknown [id number]. [facility]2002 Unknown [id number]. [facility]2002 Unknown [id number] [id number]. [facility] 2002 Unknown [id number] [id number]. [facility] Unknown [id number] [id number]. [facility]2002 Unknown [id number]. [facility]2002 Unknown [id number]. [facility] Unknown [id number] Social History Date Type Detail Facility Unknown if ever smoked [email or web address] Other Start: 12-23-2018 End: 04-28-2024 Sex Assigned At [email or web address] Other Start: 09-12-2022 End: 04-28-2024 Tobacco smoking status NHIS Never smoked tobacco (finding) [facility] Start: 2002 Sex Assigned At Female F [facility] Start: 04-28-2024 Tobacco use and exposure Smokeless tobacco non-user [facility] Start: 04-28-2024 End: 07-13-2024 Alcoholic beverage intake Current drinker of alcohol (finding) [facility] Start: 12-23-2018 End: 04-28-2024 History of Social function [facility] Adolescent depressio n screening assessment 0 [facility] Start: 04-28-2024 Alcohol Comment weekends [facility] Start: 2002 Sex assigned at Not on file P [facility] Start: 02-15-2015 Sex Female (finding) [facility] Clinical Notes 05-10-2021 to 07-13-2024 Bushra Alegre APRN-CROWN ASSEMBLY MACHINE SET UP MECHANIC - 07/13/2024 9:00 AM ESTTelephone Encounter - Tesha Conti LPN - 06/16/2024 10:55 AM ESTTelephone Encounter - Bushra Alegre APRN-CROWN ASSEMBLY MACHINE SET UP MECHANIC - 06/16/2024 10:55 AM EST Note Date & Type Note Facility 07-13-2024 History of Presen t illness Narrative Marion Hu is a 24 y.o. female. She presents for STD screening. Patient denies any symptoms or concerns. Annual UPFITTER exam 05/2024. Pap negative. 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 OB History 0 Para 0 Term 0 0 AB 0 Living 0 SAB 0 IAB 0 Ectopic 0 Multiple 0 Live Births 0 MEDICAL HX History reviewed. No pertinent past medical history. MEDS Current Outpatient Medications Medication Sig Dispense Refill dapsone (ACZONE) 5 % topical gel 1(ONE) APPLICATION(S) TOPICAL 2(TWO) TIMES A DAY norgestimate-ethinyl estradioL (ORTHO TRI-CYCLEN,TRINESSA) 0.18/0.215/0.25 mg-35 mcg (28) per tablet omeprazole (PriLOSEC) 20 mg capsule Take by mouth. metroNIDAZOLE (Metrogel VaginaL) 0.75 % (37.5mg/5 gram) vaginal gel One applicator intravaginal every night for 7 days (Patient not taking: Reported on 07/13/2024) 490 g 0 No current facility-administered medications for this visit. ALLERGIES No Known Allergies Review of Systems 10 or more systems reviewed and all negative except stated in HPI Physical Exam Vitals and nursing note reviewed. Constitutional: General: She is not in acute distress. Appearance: Normal appearance. She is not ill-appearing. HENT: Head: Normocephalic and atraumatic. Nose: No rhinorrhea. Eyes: Extraocular Movements: Extraocular movements intact. Pulmonary: Effort: Pulmonary effort is normal. No respiratory distress. Genitourinary: General: Normal vulva. Exam position: Lithotomy position. Labia: Right: No rash or lesion. Left: No rash or lesion. Vagina: No vaginal discharge or bleeding. Cervix: Eversion present. No cervical motion tenderness, discharge, friability or lesion. Comments: GC/CT and trichomonas swab collected Musculoskeletal: General: Normal range of motion. Cervical back: Normal range of motion. Skin: General: Skin is warm and dry. Neurological: General: No focal deficit present. Mental Status: She is alert. Psychiatric: Mood and Affect: Mood normal. Behavior: Behavior normal. Thought Content: Thought content normal. Judgment: Judgment normal. BP 122/74 Ht 160 cm (5' 3 ) Wt 64.4 kg (142 lb) BMI 25.15 kg/m Assessment/Plan 1. Routine screening for STI (sexually transmitted infection) (Primary) - Trichomonas by PCR; Future - Chlamydia/GC by PCR Sandor Swab; Future 2. History of chlamydia infection (+) CT 06/03/24, treated with Doxy. Partner was treated as well. 06/09/2024 HIV, Syphilis, Hep C, Hep B negative RTO annual ( due 05/2025), and prn CARLOS Disla 07/13/24 0923 documented in this encounter [facility] [employer] 06-16-2024 Miscellaneous Notes Marion called asking to speak with Bushra Alegre prior to scheduling a follow-up with her. Pt reports she has some questions that she would like to ask, prior to scheduling. Her phone # is [phone]. Spoke with Marion. Will have her follow-up in 3 mos for follow-up STI screening. Attempted to contact Marion to schedule her 3 mo follow up, but there was no answer. LM asking for pt to contact the office to get scheduled with Bushra Alegre. Patient is scheduled for 06/25 follow-up for STD testing. documented in this encounter [employer] 06-16-2024 Telephone encounter Note Marion called asking to speak with Bushra Alegre prior to scheduling a follow-up with her. Pt reports she has some questions that she would like to ask, prior to scheduling. Her phone # is [phone]. [employer] Work Phone: 06-16-2024 Telephone encounter Note Spoke with Marion. Will have her follow-up in 3 mos for follow-up STI screening. [employer] 06-16-2024 Telephone encounter Note Attempted to contact Marion to schedule her 3 mo follow up, but there was no answer. LM asking for pt to contact the office to get scheduled with Bushra Alegre. [facility] 06-16-2024 Telephone encounter Note Patient is scheduled for 06/25 follow-up for STD testing. [facility] 06-08-2024 History of Presen t illness Narrative Discussed (+) CT result with patient. Labs placed. Orders Placed This Encounter Procedures Hepatitis C(HCV) Ab w/ Reflex to PCR Standing Status: Future Standing Expiration Date: 06/08/2025 Order Specific Question: Release to patient via MyChart? Answer: Immediate [1] Syphilis Total(Unknown Syphilis Status) Standing Status: Future Standing Expiration Date: 06/08/2025 Order Specific Question: Release to patient via MyChart? Answer: Immediate [1] HIV 1&2 AB/AG Screen (P24 AG) Standing Status: Future Standing Expiration Date: 06/08/2025 Order Specific Question: Release to patient via MyChart? Answer: Immediate [1] Hepatitis B surface antigen Standing Status: Future Standing Expiration Date: 06/08/2025 Order Specific Question: Release to patient via MyChart? Answer: Immediate [1] CARLOS Disla 06/08/24 1429 documented in this encounter [facility] 06-03-2024 History of Presen t illness Narrative Annual Well Woman Visit 06/03/2024 Subjective Marion Hu is a 24 y.o. female new patient who presents for annual barrel endshake adjuster exam. Periods are regular every 28-30 days, lasting 5 days. Dysmenorrhea: mild, occurring first 1-2 days of flow. Cyclic symptoms include breast tenderness. No intermenstrual bleeding, spotting, or abnormal discharge. No pelvic pain. Patient desires STD testing today. 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 Thinking about doing dialysis or med surg. Exercise: Regular exercise, weight lifting Relationship status: in a relationship The patient reports that there is not domestic violence in her life. Sexually active: Yes Contraception: oral contraceptives (estrogen/progesterone), prescribed by dermatology. 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-smoker History of abnormal Pap smear: n/a Last pap: not yet Regular self breast exam: no Last mammogram: n /a Family history of breast cancer: no Family history of uterine or ovarian cancer: no Family history of pancreatic or prostate cancer: no Family history of colon cancer: no HPV vaccinated: yes PHQ9 depression screenin PCP: NORMA PIERCE MD LMP 05/19/2024 Do you have a history of the following: Blood clots/clotting disorders: no Stroke: no Heart disease: no Breast CA: no Impaired liver function: no 35+ and smoking: no Migraine with aura: no High blood pressure: no OB History 0 Para 0 Term 0 0 AB 0 Living 0 SAB 0 IAB 0 Ectopic 0 Multiple 0 Live Births 0 The following portions of the patient's history were reviewed and updated as appropriate: allergies, current medications, past family history, past medical history, past social history, past surgical history and problem list. MEDICAL HX History reviewed. No pertinent past medical history. SURGICAL HX History reviewed. No pertinent surgical history. FAMILY HX History reviewed. No pertinent family history. MEDS Current Outpatient Medications Medication Sig Dispense Refill dapsone (ACZONE) 5 % topical gel 1(ONE) APPLICATION(S) TOPICAL 2(TWO) TIMES A DAY norgestimate-ethinyl estradioL (ORTHO TRI-CYCLEN,TRINESSA) 0.18/0.215/0.25 mg-35 mcg (28) per tablet omeprazole (PriLOSEC) 20 mg capsule Take by mouth. metroNIDAZOLE (Metrogel VaginaL) 0.75 % (37.5mg/5 gram) vaginal gel One applicator intravaginal every night for 7 days (Patient not taking: Reported on 06/03/2024) 490 g 0 No current facility-administered medications for this visit. ALLERGIES No Known Allergies Review of Systems 10 or more systems reviewed and all negative except stated in hpi. Objective BP 116/74 Ht 160 cm (5' 3 ) Wt 63.1 kg (139 lb 3.2 oz) LMP 05/19/2024 (Approximate) BMI 24.66 kg/m Physical Exam Vitals and nursing note reviewed. Constitutional: General: She is not in acute distress. Appearance: Normal appearance. She is not ill-appearing. HENT: Head: Normocephalic and atraumatic. Right Ear: External ear normal. Left Ear: External ear normal. Nose: Nose normal. Eyes: Extraocular Movements: Extraocular movements intact. Neck: Thyroid: No thyroid tenderness. Cardiovascular: Rate and Rhythm: Normal rate and regular rhythm. Heart sounds: Normal heart sounds. Pulmonary: Effort: Pulmonary effort is normal. Breath sounds: Normal breath sounds. Chest: Breasts: Right: Normal. No inverted nipple, mass, nipple discharge, skin change or tenderness. Left: Normal. No inverted nipple, mass, nipple discharge, skin change or tenderness. Abdominal: General: Abdomen is flat. There is no distension. Palpations: Abdomen is soft. There is no mass. Tenderness: There is no abdominal tenderness. There is no guarding. Hernia: There is no hernia in the left inguinal area or right inguinal area. Genitourinary: General: Normal vulva. Exam position: Lithotomy position. Pubic Area: No rash. Labia: Right: No rash, tenderness or lesion. Left: No rash, tenderness or lesion. Urethra: No prolapse or urethral lesion. Vagina: Vaginal discharge (physiologic) present. No bleeding or lesions. Cervix: Eversion present. No cervical motion tenderness, discharge, friability, lesion or erythema. Uterus: Normal. Not enlarged, not fixed and not tender. Adnexa: Right adnexa normal and left adnexa normal. Comments: Pap and vaginitis panel collected, GC/CT from pap Musculoskeletal: General: Normal range of motion. Cervical back: Normal range of motion. Right lower leg: No edema. Left lower leg: No edema. Lymphadenopathy: Cervical: No cervical adenopathy. Upper Body: Right upper body: No supraclavicular, axillary or pectoral adenopathy. Left upper body: No supraclavicular, axillary or pectoral adenopathy. Lower Body: No right inguinal adenopathy. No left inguinal adenopathy. Skin: General: Skin is warm and dry. Neurological: General: No focal deficit present. Mental Status: She is alert and oriented to person, place, and time. Psychiatric: Mood and Affect: Mood normal. Speech: Speech normal. Behavior: Behavior normal. Behavior is cooperative. Thought Content: Thought content normal. Judgment: Judgment normal. Assessment/Plan: Marion was seen today for annual exam. Diagnoses and all orders for this visit: Women's annual routine gynecological examination Standardized adult depression screening tool completed Well woman exam - [facility] Physician's SEMI CONDUCTOR ASSEMBLER - [facility] [place], [place] - Consult Cervical cancer screening - [facility] Physician's SEMI CONDUCTOR ASSEMBLER - [facility] [place], [place] - Consult - Pap Smear; Future - Chlamydia/Gonorrhoeae by PCR, Fluid; Future Oral contraceptive pill surveillance No contraindications to OCP. Patient declined need for refills, managed by Dermatology. Routine screening for STI (sexually transmitted infection) - Vaginitis Panel PCR; Future Reviewed ACHES - Pt to immediately present to ED for the following: A- Abdominal Pain C- Chest Pain H- Increase in frequency/severity of headaches E- Eye/Vision Problems S- Severe Leg Pain or swelling RTO annual, prn Patient Education: 1. Recommend breast self-awareness. Notify provider for any breast changes or concerns 2. National guidelines recommend yearly screening mammogram to start at age 40 3. National guidelines recommend colonoscopy starting at 45 for average risk individuals 4. Recommend Calcium 1,000 mg and Vit. D 600 IU daily, preferably through diet and folic acid supplementation for all women of reproductive age to reduce the risk of neural tube defects 5.HPV vaccination provides immunization against 9 high-risk HPV strains implicated in HPV-related head/ neck, anorectal and cervicovaginal cancers. Information provided on HPV vaccine and vaccination schedule, FDA approval from ages 9-45 in the [place]. Can go to local pharmacy for vaccine ([facility], [facility], etc). VON PRITCHARD APRN-CNP 06/03/24 1059 documented in this encounter [facility] 05-11-2024 Miscellaneous Notes ----- Message from Dr. Norma Pierce MD sent at 05/10/2024 2:00 PM EDT ----- Abnormal result. Please call patient and share they likely have an infection of Fountain (EBV virus). At this stage no additional treatment is necessary, it will self resolve but does take 4-8 weeks. Advil and tylenol are ok to use. NO Aspirin use. Would still ask her to continue the anti allergy pill. NORMA Hobbs MD Called patient and informed her. She stated understanding. [facility] Telephone encounter Note ----- Message from Dr. Norma Pierce MD sent at 05/10/2024 2:00 PM EDT ----- Abnormal result. Please call patient and share they likely have an infection of Fountain (EBV virus). At this stage no additional treatment is necessary, it will self resolve but does take 4-8 weeks. Advil and tylenol are ok to use. NO Aspirin use. Would still ask her to continue the anti allergy pill. NORMA Hobbs MD [facility] 05-11-2024 Telephone encounter Note Called patient and informed her. She stated understanding. [facility] 05-06-2024 History of Presen t illness Narrative Venipuncture performed in the right arm, no adverse reactions. [facility] 09-12-2022 Evaluation note Encounter Date Diagnosis Assessment Notes Sep, Well adult exam (ICD-10 - Z00.00) completed forms for nursing clinicals - cleared to proceed. [email or web address] Other 10-27-2021 Evaluation note* Encounter Date Diagnosis Assessment Notes Treatment Notes Treatment Clinical Notes Apr, Viral upper respiratory illness (ICD-10 - J06.9) Apr, Contact with and (suspected) exposure to other viral communicable diseases (ICD-10 - Z20.828) Apr, Other Additional time spent conducting pre-visit phone call, screening for symptoms, instructions on social distancing, application and removal of PPE, and cleaning of examination room, equipment and supplies was preformed. Patient education given for testing methodology and results. Patient care instructions given in writting by [facility] Care At Home document. [email or web address] Other Evaluation note* Diagnosis Onset Date Resolution Status Lymph node enlargement acute [facility] Work Phone: Evaluation note* Diagnosis Acute pharyngitis, unspecified etiology- Primary [facility] this encounter [facility] Diagnosis Women's annual routine gynecological examination- Primary Standardized adult depression screening tool completed Well woman exam Routine general medical examination at a health care facility Cervical cancer screening Screening for malignant neoplasm of the cervix Oral contraceptive pill surveillance Routine screening for STI (sexually transmitted infection) Screening examination for venereal disease documented in this encounter [facility]* Diagnosis Chlamydia- Primary Other specified chlamydial infection, in conditions classified elsewhere and of unspecified site documented in this encounter [facility]* Diagnosis Screening examination for STI- Primary documented in this encounter [facility]* Diagnosis Routine screening for STI (sexually transmitted infection)- Primary Screening examination for venereal disease History of chlamydia infection documented in this encounter [facility] general Narrative - Reported* Type Description Date Medical History Acne [email or web address] Other InstructionsNot on filedocumented in this encounter [facility] filed[facility] in this [facility] filedocumented in this encounter [facility] filedocumented in this encounter [facility] filedocumented in this [facility] Summary Purpose Family History No Family History Records FoundNo Family History Records FoundNo Family History Records FoundNo Family History Records Found Advance Directives No Advanced Directives Records Found Advance Directive Response Recorded Date/ Time Advance Directives No March 9:28am Chief Complaint and Reason for Visit Chief Complaint Strep Throat Reason for Visit Lymph node enlargeme nt Additional Source Comments INFORMATION SOURCE (unrecogn ized section and content) DATE CREATED AUTHOR 01/06/2018 [facility] DATE CREATED AUTHOR AUTHOR'S ORGANIZ ATION 06/23/2024 [facility] DATE CREATED AUTHOR AUTHOR'S ORGANIZ ATION 07/13/2024 [facility] DATE CREATED AUTHOR AUTHOR'S ORGANIZ ATION 07/15/2024 [facility] REASON FOR VISIT (unrecogniz ed section and content) Reason Comments Annual Exam Specialty Diagnoses / Procedures Referred By Lori cortez Referred To Contact Obstetrics & Gynecology / Obstetrics and Gynecology Diagnoses Well woman exam Cervical cancer screening Norma Pierce MD [address], [place] [address] Phone: tel: fax: Grisel Owens, PUBLICITY PERSON[employer] [address] [place] [address] Phone: tel: fax: Referral ID Status Reason Start Date Expiration Date V isits Requested Visits Authorized [id number] Closed Specialty Services Required 04/28/2024 04/28/2025 1 1 Reason Onset Date Comments Follow-up 06/16/2024 Reason Comments Screening for std Care Teams (unrecognized sec tion and content) Team Status: Active Member Role Status Dates Halle Brady MD Primary Care Provider Active Team Status: Inactive Member Role Status Dates Halle Brady MD Primary Care Provide r, Attending Provider Active Start: April 09, 2024 End: April 09, 2024 [employer] Technical [employer] Relationship Specialty Start Date End Date Norma Pierce MD [address] [place], [place] [id number] PCP - General Internal Medicine 04/28/24 [employer] Technical Architect Relationship Specialty Start Date End Date Norma Pierce MD [address] [place] [address] PCP - General Internal Medicine 04/28/24 [employer] Technical Architect Relationship Specialty Start Date End Date Norma Pierce MD [address] [place] [address] PCP - General Internal Medicine 04/28/24 [employer] Technical Architect Relationship Specialty Start Date End Date Norma Pierce MD [address] [place] [address] PCP - General Internal Medicine 04/28/24 [employer] Technical Architect Relationship Specialty Start Date End Date Norma Pierce MD [address] [place] [address] PCP - General Internal Medicine 04/28/24 [employer] Technical Architect Relationship Specialty Start Date End Date Norma Pierce MD [address] [place] [address] PCP - General Internal Medicine 04/28/24 Goals (unrecognized section and content) Goals may be documented in a n alternate section FOR RECORDS PERTAINING TO PATIENTS WHO ARE OR HAVE BEEN ENROLLED IN A CHEMICAL DEPENDENCY/SUBSTANCEABUSE PROGRAM, SOME INFORMATION MAY BE OMITTED. This clinical summary was aggregated from multiple sources. Caution should be exercised in using it in the provision of clinical care. This summary normalizes information from multiple sources, and as a consequence, information in this document may materially change the coding, format and clinical context of patient data. In addition, data may be omitted in some cases. CLINICAL DECISIONS SHOULD BE BASED ON THE PRIMARY CLINICAL RECORDS. [employer] [facility]. provides no warranty or guarantee of the accuracy or completeness of information in this document.
--- OUTSIDE RECORDS SUMMARY | 2024-09-07 10:51 | XMS_ITS | CCD ---
Author Organization [facility] ion [facility] Care Team Providers Care Stud Master/Mistress Name Role Phone DANA ENCARNACION Unavailable Vignesh Leahy Unavailable Unavailable La Tolliver Unavailable Unavail able Mari Mcdonald Primary Care Physician UnavailMari Dunaway Unavailable Unavailable Mari Mcdonald Primary Care Physician Unavaila Melodie Herzog Unavailable Halle Brady Unavailable HALLE BRADY Referring Unavailable BUSHRA ALEGRE Referring Unavailable STAN, MUHAMID M Primary Care Unavailable BUSHRA ALEGRE Referring Unavailable STAN, MUHAMID M Primary Care Unavailable Stan Norma WHEATLEY Primary Care Provider STAN, MUHAMID M Attending Unavailable STAN, MUHAMID [...] able STAN, MUHAMID M Primary Care Unavailable KIKEINVASHTIBUSHRA M Referring Unavailable STAN, MUHAMID M Primary Care Unavailable WILMAMAINVASHTIBUSHRA M Referring Unavailable STAN, MUHAMID M Primary Care Unavailable Allergies Allergy Classification Reported Allergen(s) Allergy Type Date of Onset Reaction(s) Facility (1 source) No Known Medication Allergies; Translations: [No Known Medication Allergies] Propensity to adverse reactions to drug (disorder) [facility] Repository Medications Current Medications Medication Drug [...] Episodic Contraceptive and procreative management (2 sources) Encounter for surveillance of contraceptive pills; Translations: [Oral contraception] Onset: 06-03-2024 06-03-2024 Episodic Immunizations and screening for infectious disease (8 sources) Contact with and (suspected) exposure to other viral communicable diseases; Translations: [Encounter for screening for infections with a predominantly sexual mode of transmission] Onset: 05-10-2021 Resolved: 05-10-2021 Episodic Inflammatory diseases [...] mental disorders or infectious disease) (4 sources) Encounter for screening for malignant neoplasm of cervix; Translations: [Cancer cervix screening status] Onset: 06-03-2024 06-03-2024 Episodic Other skin disorders (3 sources) Acne vulgaris Onset: 05-02-2020 Episodic Other upper respiratory disease (1 source) Pain in throat Onset: 04-28-2024 Episodic Other upper respiratory infections (4 sources) Acute upper respiratory infection, unspecified; Translations: [Acute pharyngitis, unspecified] Onset: 05-10-2021 Resolved: 05-10-2021 Episodic Screening and history of mental health and substance abuse codes (2 sources) Encounter for screening for depression; Translations: [Standardized adult depression screening tool completed ] Onset: 06-03-2024 06-03-2024 Episodic Unclassified (1 source) Screening for std Onset: 07-13-2024 Unclassified (1 source) Annual Exam Onset: 06-03-2024 Unclassified (1 source) Establish Care Onset: 04-28-2024 Past or Other Problems Problem Classification Problem Date Documented Date Episodic/Chronic Mood disorders (7 sources) Mood disorders Onset: 04-28-2024 Resolved: 06-03-2024 06-03-2024 Other and unspecified benign neoplasm (2 sources) [...] are dependent on adequate specimen collection. Normal [facility] Comment on above: Performed By: #### C BCA, CMP, 10259-0, TSHR, 5157-3, 5159-9, 5124-3, 58132-0 #### [facility] ([id number]) [facility], [address] [place] [address] TRICHOMONAS PCRon 07-13-2024 TRICHOMONAS PCR SPECIMEN SOURCE VAGINAL TRICHOMONAS PCR Not detected (qualifier value) Trichomonas vaginalis not detected NOTE Assay methodology is nucleic acid amplification by real-time PCR for detection of Trichomonas vaginalis DNA performed on [employer] GeneXpert Instrument System. Normal [facility] Comment on above: Performed By: #### T RKPCR #### [facility] ([id number]) [address], [address] [place] [address] HBV surface Ag IA [facility] 06-09 HEPATITIS B SURF AG Negative Normal NEG [facility] Comment on above: Performed By: #### 5 196-1, 43484-2, 44344-9, 01206-0 #### [facility] ([id number]) [address], [address] [place] [address] HCV Ab IA Qlon 06-09-2024 ANTI HCV W/PCR REFLX Non-Reactive Normal NRCT [facility] Comment on above: Result Comment: If recent infection suspected, recommend repeat testing (>2 months). Vnyuas-vz-vgjmoh ratio is <0.80. Performed By: #### 5 196-1, 13647-3, 27185-0, 57533-5 #### [facility] ([id number]) [address] [place] [address], [address] [place] [address] HIV 1+2 Ab+HIV1 p24 Ag IA Ql on 06-09-2024 HIV 1 and 2 Ab/Ag Screen Non-Reactive Normal NRCT [facility] Comment on above: Result Comment: This information [...] or diagnoses. Performed By: #### 5 196-1, 23022-0, 76036-5, 22388-7 #### [facility] ([id number]) [address] [place] [address], [address] [place] [address] T. pallidum IgG+IgM IA Ql (S )on 06-09-2024 Syphilis Total <0.2 Normal 0.0-0.8 [facility] Comment on above: Result Comment: NON REACTIVE No serologic evidence of infection to Treponema pallidum (syphilis). Repeat testing may be considered in patients with suspected acute or primary syphilis in 2 to 4 weeks. Performed By: #### 5 196-1, 02515-4, 26842-9, 41602-1 #### [facility] ([id number]) [address] [place] [address], [address] [place] [address] CHLAMYDIA/GC PCR, FLon 06-03 CHLAMYDIA/GC PCR, FL CHLAMYDIA PCR, FL Positive (qualifier value) Chlamydia trachomatis detected by nucleic acid amplification. GONORRHOEAE PCR, FL Negative (qualifier value) Neisseria gonorrhoeae not detected by nucleic acid amplification. This does not exclude the possibility of infection because results are dependent on adequate specimen collection. Normal [facility] Comment on above: Performed By: #### C [facility] #### [facility] ([id number]) [address] [place] [address], [address] [place] [address] Cytologyon 06-03-[address] [facility] Comment on above: Result Comment: [facility] [address] [place] [address] Gynecologic Cytology Consultation Patient Name:MARION HU:2000 (Age: 24)Gender:FTaken:4Reported:06/20/2024hysician(s):Kadeem ChowdhuryNKey ([phone])Copy To: Rec. #:[id number]: #[id number] Final Cytologic Interpretation ThinPrep Pap Test (Cervical): Satisfactory for evaluation. A transformation zone component is present. NEGATIVE FOR INTRAEPITHELIAL LESION OR MALIGNANCY. Numerous neutrophilic leukocytes are present. lrd/06/20/2024 [facility] [place] [address], License number: [id number]. Electronically Signed Out By PETRA Suarez, (ASCP) Date of Last Menstrual Period: 05/19/24 Other Clinical Conditions: Oral contraceptive Z12.4 Screening for malignant neoplasm of cervix Source of Specimen ThinPrep Pap Test (Cervical) Thin Prep Pap (ENVIRONMENTAL MARKETER) Fee Code(s): G0145 The Pap test is a screening test with an inherent, but low, probability of error. The Pap test is primarily effective for the diagnosis and prevention of squamous cell carcinoma. Regular screening is critical for prevention. ThinPrep liquid-based slides, which meet the Solar Energy Engineer criteria for automated screening, have been screened by the ThinPrep Imaging System (as of 03/31/07) along with an additional manual rescreening by a field superintendent and, if indicated, by a pathologist. VAGINITIS [...] clinical presentation to determine patient diagnosis. Normal [facility] Comment on above: Performed By: #### V PPCR #### [facility] ([id number]) [address], [address] [place] [address] CBC AND AUTO DIFFon 20 24 ABSOLUTE BASOPHIL 0.1 X10E9/L Normal 0.0-0.2 [facility] Comment on above: Performed By: #### C BCA, CMP, 29469-0, TSHR, 5157-3, 5159-9, 5124-3, 03795-2 #### [facility] ([id number]) [address], [address] [place] [address] ABSOLUTE NEUTROPHIL 6.8 X10E9/L High 1.5-6.6 [facility] Comment on above: Performed By: #### C BCA, CMP, 62244-7, TSHR, 5157-3, 5159-9, 5124-3, 70305-5 #### [facility] ([id number]) [address] [address] [place] [address] Basophils/100 WBC (Bld) 0.7 % Normal [facility] Comment on above: Performed By: #### C BCA, CMP, 45911-1, TSHR, 5157-3, 5159-9, 5124-3, 42829-5 #### [facility] ([id number]) [address] [address] Eosinophils (Bld) [#/Vol] 0.2 10*3/uL Normal 0.0-0.4 [facility] Comment on above: Performed By: #### C BCA, CMP, 85053-9, TSHR, 5157-3, 5159-9, 5124-3, 23893-9 #### [facility] ([id number]) [address] [address] Eosinophils/100 WBC (Bld) 1.6 % Normal [facility] Comment on above: Performed By: #### C BCA, CMP, 77676-5, TSHR, 5157-3, 5159-9, 5124-3, 42643-3 #### [facility] ([id number]) [address] [address] [place] [address] Erythrocyte distribution width (RBC) [Ratio] 13.5 % Normal 11.5-15.0 [facility] Comment on above: Performed By: #### C BCA, CMP, 66316-7, TSHR, 5157-3, 5159-9, 5124-3, 90877-3 #### [facility] ([id number]) [address] [address] [place] [address] Hematocrit (Bld) [Volume fraction] 40.7 % Normal 35-47 [facility] Comment on above: Performed By: #### C BCA, CMP, 18261-8, TSHR, 5157-3, 5159-9, 5124-3, 57439-6 #### [facility] ([id number]) [address], [address] [place] [address] Hemoglobin (Bld) [Mass/Vol] 13.9 g/dL Normal 11.7-15.5 [facility] Comment on above: Performed By: #### C BCA, CMP, 12814-3, TSHR, 5157-3, 5159-9, 5124-3, 59331-8 #### [facility] ([id number]) [address] [address] [place] [address] Lymphocytes (Bld) [#/Vol] 2.3 10*3/uL Normal 1.0-3.5 [facility] Comment on above: Performed By: #### C BCA, CMP, 91989-4, TSHR, 5157-3, 5159-9, 5124-3, 25737-4 #### [facility] ([id number]) [address] [facility] [address] [place] [address] Lymphocytes/100 WBC (Bld) 23.1 % Normal [facility] Comment on above: Performed By: #### C BCA, CMP, 41151-3, TSHR, 5157-3, 5159-9, 5124-3, 32905-7 #### [facility] ([id number]) [address] [address] [place] [address] MCH (RBC) [Entitic mass] 31.1 pg Normal 27-34 [facility] Comment on above: Performed By: #### C BCA, CMP, 10700-0, TSHR, 5157-3, 5159-9, 5124-3, 00652-1 #### [facility] ([id number]) [address] [address] [place] [address] MCHC (RBC) [Mass/Vol] 34.2 g/dL Normal 32-36 [facility] Comment on above: Performed By: #### C BCA, CMP, 75101-6, TSHR, 5157-3, 5159-9, 5124-3, 16583-7 #### [facility] ([id number]) [address], [address] [place] [address] MCV (RBC) [Entitic vol] 91 fL Normal 80-100 [facility] Comment on above: Performed By: #### C BCA, CMP, 56932-7, TSHR, 5157-3, 5159-9, 5124-3, 52168-9 #### [facility] ([id number]) [address] [address] Monocytes (Bld) [#/Vol] 0.7 10*3/uL Normal 0-0.9 [facility] Comment on above: Performed By: #### C BCA, CMP, 96168-5, TSHR, 5157-3, 5159-9, 5124-3, 14183-9 #### [facility] ([id number]) [address] [facility] [address] [place] [address] Monocytes/100 WBC (Bld) 7.1 % Normal [facility] Comment on above: Performed By: #### C BCA, CMP, 20489-7, TSHR, 5157-3, 5159-9, 5124-3, 46016-7 #### [facility] ([id number]) [address] [facility] [address] [place] [address] Neutrophils/100 WBC (Bld) 67.5 % Normal [facility] Comment on above: Performed By: #### C BCA, CMP, 31564-1, TSHR, 5157-3, 5159-9, 5124-3, 27074-9 #### [facility] ([id number]) [address], [address] [place] [address] Platelet mean volume (Bld) [Entitic vol] 6.9 fL Low 7-12 [facility] Comment on above: Performed By: #### C BCA, CMP, 07744-3, TSHR, 5157-3, 5159-9, 5124-3, 95045-8 #### [facility] ([id number]) [address], [address] [place] [address] Platelets (Bld) [#/Vol] 418 10*3/uL Normal 150-450 [facility] Comment on above: Performed By: #### C BCA, CMP, 41722-9, TSHR, 5157-3, 5159-9, 5124-3, 87851-3 #### [facility] ([id number]) [address], [address] [place] [address] RBC COUNT 4.47 X10E12/L Normal 3.80-5.20 [facility] Comment on above: Performed By: #### C BCA, CMP, 13217-2, TSHR, 5157-3, 5159-9, 5124-3, 22899-1 #### [facility] ([id number]) [address], [address] [place] [address] WBC (Bld) [#/Vol] 10.1 10*3/uL Normal 4.0-11.0 [facility] Comment on above: Performed By: #### C BCA, CMP, 64043-8, TSHR, 5157-3, 5159-9, 5124-3, 92501-9 #### [facility] ([id number]) [address], [address] [place] [address] CMV IgG IA [facility] 05-06-2024 CYTOMEGALOVIRUS IgG <0.2 Normal <0.9 [facility] Comment on above: Result Comment: Interpretation-------- <0.9 Negative 0.9 - 1.0 Equivocal >1.0 Positive Performed By: #### C BCA, CMP, 30258-0, TSHR, 5157-3, 5159-9, 5124-3, 88521-6 #### [facility] ([id number]) [address], [address] [address] CMV IgM IA Qlon 05-06-2024 CYTOMEGALOVIRUS IgM 0.3 AI Normal <0.9 [facility] Comment on above: Result Comment: Interpretation-------- <0.9 Negative 0.9 - 1.0 Equivocal >1.0 Positive NOTE The following results were obtained with the [place] [address] [employer] IgM test. Results obtained from other [employer] assay methods may not be used interchangeably. Performed By: #### C BCA, CMP, 41345-6, TSHR, 5157-3, 5159-9, 5124-3, 51581-6 #### [facility] ([id number]) [address] [address] COMPREHENSIVE METABOLIC PANE Sesar 05-06-2024 Albumin [Mass/Vol] 4.2 g/dL Normal 3.2-5.3 [facility] Comment on above: Performed By: #### C BCA, CMP, 06086-3, TSHR, 5157-3, 5159-9, 5124-3, 39106-8 #### [facility] ([id number]) [address] [address] ALP [Catalytic activity/Vol] 50 U/L Normal 39-130 [facility] Comment on above: Performed By: #### C BCA, CMP, 55515-7, TSHR, 5157-3, 5159-9, 5124-3, 72421-8 #### [facility] ([id number]) [address] [place] [address] ALT [Catalytic activity/Vol] 14 U/L Normal 0-31 [facility] Comment on above: Performed By: #### C BCA, CMP, 89853-1, TSHR, 5157-3, 5159-9, 5124-3, 05909-7 #### [facility] ([id number]) [address], [address] [place] [address] Anion gap [Moles/Vol] 9 mmol/L Normal 5-15 [facility] Comment on above: Performed By: #### C BCA, CMP, 16231-3, TSHR, 5157-3, 5159-9, 5124-3, 67136-9 #### [facility] ([id number]) [address], [address] [place] [address] AST [Catalytic activity/Vol] 16 U/L Normal 0-41 [facility] Comment on above: Performed By: #### C BCA, CMP, 25780-9, TSHR, 5157-3, 5159-9, 5124-3, 42518-8 #### [facility] ([id number]) [address], [address] [place] [address] Bilirubin [Mass/Vol] 0.4 mg/dL Normal 0.3-1.2 [facility] Comment on above: Performed By: #### C BCA, CMP, 33786-7, TSHR, 5157-3, 5159-9, 5124-3, 31449-2 #### [facility] ([id number]) [address], [address] [place] [address] Calcium [Mass/Vol] 9.0 mg/dL Normal 8.5-10.5 [facility] Comment on above: Performed By: #### C BCA, CMP, 10781-7, TSHR, 5157-3, 5159-9, 5124-3, 04423-0 #### [facility] ([id number]) [address], [address] [place] [address] Chloride [Moles/Vol] 103 mmol/L Normal 98-109 [facility] Comment on above: Performed By: #### C BCA, CMP, 91257-0, TSHR, 5157-3, 5159-9, 5124-3, 23313-1 #### [facility] ([id number]) [address] [facility] [address] [place] [address] CO2 [Moles/Vol] 25 mmol/L Normal 22-32 [facility] Comment on above: Performed By: #### C BCA, CMP, 05232-6, TSHR, 5157-3, 5159-9, 5124-3, 46070-3 #### [facility] ([id number]) [address], [address] [address] Creatinine [Mass/Vol] 0.97 mg/dL Normal 0.40-1.00 [facility] Comment on above: Result Comment: METH OD TRACEABLE TO IDMS STANDARD Performed By: #### C BCA, CMP, 78127-6, TSHR, 5157-3, 5159-9, 5124-3, 11980-4 #### [facility] ([id number]) [address] [address] GFR/1.73 sq M.predicted among non-blacks MDRD (S/P/Bld) [Vol rate/Area] 85 mL/min/{1.73_m2} Normal >59 [facility] Comment on above: Result Comment: Reported eGFR is based on the CKD-EPI 2020 equation that does not use a race coefficient. Performed By: #### C BCA, CMP, 12319-2, TSHR, 5157-3, 5159-9, 5124-3, 92010-3 #### [facility] ([id number]) [address], [address] [place] [address] Glucose [Mass/Vol] 77 mg/dL Normal 65-99 [facility] Comment on above: Performed By: #### C BCA, CMP, 97749-3, TSHR, 5157-3, 5159-9, 5124-3, 37946-0 #### [facility] ([id number]) [address], [address] [place] [address] Potassium [Moles/Vol] 3.8 mmol/L Normal 3.5-5.0 [facility] Comment on above: Performed By: #### C BCA, CMP, 57060-8, TSHR, 5157-3, 5159-9, 5124-3, 04077-3 #### [facility] ([id number]) [address] [address] [place] [address] Protein [Mass/Vol] 6.9 g/dL Normal 6.0-8.0 [facility] Comment on above: Performed By: #### C BCA, CMP, 06144-3, TSHR, 5157-3, 5159-9, 5124-3, 81182-8 #### [facility] ([id number]) [address], [address] [place] [address] Sodium [Moles/Vol] 137 mmol/L Normal 134-146 [facility] Comment on above: Performed By: #### C BCA, CMP, 92205-0, TSHR, 5157-3, 5159-9, 5124-3, 30974-9 #### [facility] ([id number]) [address], [address] [place] [address] Urea nitrogen [Mass/Vol] 15 mg/dL Normal 5-23 [facility] Comment on above: Performed By: #### C BCA, CMP, 47395-3, TSHR, 5157-3, 5159-9, 5124-3, 71017-6 #### [facility] ([id number]) [address], [address] [place] [address] EBV capsid IgG IA Qn (S)on JATIN GAY VCA IgG 6.7 AI High <0.9 [facility] Comment on above: Result Comment: Interpretation-------- <0.9 Negative 0.9 - 1.0 Equivocal >1.0 Positive Performed By: #### C BCA, CMP, 46310-9, TSHR, 5157-3, 5159-9, 5124-3, 15373-7 #### [facility] ([id number]) [address], [address] [place] [address] EBV capsid IgM IA Qn (S)on JATIN GAY VCA IgM 1.1 AI High <0.9 [facility] Comment on above: Result Comment: Interpretation-------- <0.9 Negative 0.9 - 1.0 Equivocal >1.0 Positive Performed By: #### C BCA, CMP, 96047-7, TSHR, 5157-3, 5159-9, 5124-3, 92319-5 #### [facility] ([id number]) [address], [address] [place] [address] Lipid 1996 panelon 4 Cholesterol [Mass/Vol] 157 mg/dL Normal 150-200 [facility] Comment on above: Performed By: #### C BCA, CMP, 16549-4, TSHR, 5157-3, 5159-9, 5124-3, 74446-0 #### [facility] ([id number]) [address], [address] [place] [address] Cholesterol in HDL [Mass/Vol] 72 mg/dL Normal >39 [facility] Comment on above: Result Comment: HDL <40 mg/dL - High Risk HDL > or = 40mg/dL- Desirable HDL >60 mg/dL - Negative Risk Performed By: #### C BCA, CMP, 24242-2, TSHR, 5157-3, 5159-9, 5124-3, 61935-2 #### [facility] ([id number]) [address], [address] [place] [address] Cholesterol in LDL [Mass/Vol] 67 mg/dL Normal <130 [facility] Comment on above: Result Comment: LDL <100 mg/dL - Desirable LDL >160 mg/dL - High Risk Performed By: #### C BCA, CMP, 47117-6, TSHR, 5157-3, 5159-9, 5124-3, 37572-0 #### [facility] ([id number]) [address], [address] [place] [address] Cholesterol in VLDL [Mass/Vol] 18 mg/dL Normal 0-30 [facility] Comment on above: Performed By: #### C BCA, CMP, 58508-6, TSHR, 5157-3, 5159-9, 5124-3, 02390-8 #### [facility] ([id number]) [address], [address] [place] [address] CHOLESTEROL:HDL 2.2 Normal 1.0-5.0 [facility] Comment on above: Performed By: #### C BCA, CMP, 94754-4, TSHR, 5157-3, 5159-9, 5124-3, 47346-9 #### [facility] ([id number]) [address], [address] [place] [address] Triglyceride [Mass/Vol] 88 mg/dL Normal 27-150 [facility] Comment on above: Performed By: #### C BCA, CMP, 84939-9, TSHR, 5157-3, 5159-9, 5124-3, 47714-3 #### [facility] ([id number]) [address], [address] [place] [address] TSH WITH REFLEXon 05-06-2024 TSH 1.04 uIU/mL Normal 0.49-4.67 [facility] Comment on above: Performed By: #### C BCA, CMP, 23955-1, TSHR, 5157-3, 5159-9, 5124-3, 52725-1 #### [facility] ([id number]) [address] [place] [address] US THYROIDon 04-16-2024 US THYROID US THYROID [...] Wallis MD on 04/16/2024 8:[address] [facility] COVID Quick Testingon 2020 Result Negative SIGKAT Other Ambulatory Patient Education on 08-09-2017 Ambulatory [...] dyes and rinses, soaps, solvents, waxes, fingernail nigerian, and deodorants? Jewelry or watchbands made of [...] skin? Yellow-brown crusts on the open blisters? [id number] [employer]. [address] [place] [address], [place] [address]. All rights reserved. This information is not intended as a substitute for professional medical care. Always follow your healthcare professional's instructions. Normal [facility] Urgent Care Office/Clinic No angelo 08-09-2017 Urgent [...] in the area due to application of [id number] ointments. Additional Vitals Body Mass Index Measured: 20.45 kg/m2 Peripheral Pulse Rate: 74 bpmAssessment/Plan 1. Contact dermatitis Take medication as directed. To apply Vaseline to area within 3 minutes of shower. To follow-up with paper cone maker if no improvements. If severe symptoms may go to ER. Ordered: triamcinolone topical, 1 kit, Topical, BID, X 14 days, # 30 g, 0 Refill(s), 08/23/17 19:49:00 EST, Pharmacy: [id number] List/Past Medical History Ongoing No chronic problems Historical No qualifying dataMedications triamcinolone 0.1% topical cream, 1 kit, Topical, BIDAllergies No Known Medication AllergiesSocial History Tobacco Never smokerFamily History Family history is unknownDiagnostic Results No qualifying data available. No qualifying data available. No qualifying data available. No qualifying data available.Electronically signed by Scarb rough La NIEVES 08/09/17 19:51 EST [facility] Ambulatory Patient Education on 02-09-2017 Ambulatory Patient Education Patient Education MaterialsName: Marion Hu Current Date: 02/09/2017 17:17:45 [place] 2000 following sheet(s) are the Patient Education Leaflets for Marion Hu [facility] Urgent Care Office/Clinic No angelo 02-09-2017 Urgent [...] Dana Moreira CNP 02/09/17 17:16 EDT [address] [facility] Vital Signs Date Time Vital Sign Value Performing Clinician Facility 07-13-2024 09:07-0500 Body height 160 cm Bushra GONZALEZ Work Phone: [facility] 07-13-2024 09:07-0500 Body mass index (BMI) [Ratio] 25.15 kg/m2 Bushra GONZALEZ Work Phone: [facility] 07-13-2024 09:07-0500 Body weight 64.41 kg Bushra Alegre TOLL 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-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 SPECIALIST Work Phone: [facility] 07-13-2024 09:07-0500 Diastolic blood pressure 74 mm[Hg] Bushra Garibayin TOLL 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-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 SPECIALIST Work Phone: [facility] 07-13-2024 09:07-0500 Systolic blood pressure 122 mm[Hg] Bushra Garibayin TOLL 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-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 SPECIALIST Work Phone: [facility] 06-03-2024 10:08-0500 Body height 160 cm Bushra Garibayin TOLL 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-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 SPECIALIST Work Phone: [facility] 06-03-2024 10:08-0500 Body mass index (BMI) [Ratio] 24.66 kg/m2 Bushra Garibayin TOLL 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-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 SPECIALIST Work Phone: [facility] 06-03-2024 10:08-0500 Body weight 63.14 kg Bushra Garibayin TOLL 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-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 SPECIALIST Work Phone: [facility] 06-03-2024 10:08-0500 Diastolic blood pressure 74 mm[Hg] Bushra Garibayin TOLL 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-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 SPECIALIST Work Phone: [facility] 06-03-2024 10:08-0500 Systolic blood pressure 116 mm[Hg] Bushra Garibayin TOLL 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-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 SPECIALIST Work Phone: [facility] 04-09-2024 09:33-0400 Body height 160.02 cm [facility] 04-09-2024 09:33-0400 Body mass index (BMI) [Ratio] 23.7 kg/m2 [facility] 04-09-2024 09:33-0400 Body weight 60.78 kg [facility] 04-09-2024 09:33-0400 Diastolic blood pressure 68 mm[Hg] [facility] 04-09-2024 09:33-0400 Heart rate 79 /min [facility] 09-26-2024 09:33-0400 Systolic blood pressure 105 mm[Hg] [facility] 09-12-2022 11:30-0500 Body height 160.02 cm Halle Brady Other [facility] Other 09-12-2022 11:30-0500 Body mass index (BMI) [Ratio] 24.62 kg/m2 Halle Brady Other [facility] Other 09-12-2022 11:30-0500 Body weight 63.05 kg Halle Brady Other [facility] Other 09-12-2022 11:30-0500 Diastolic blood pressure 64 mm[Hg] Halle Brady Other [facility] Other 09-12-2022 11:30-0500 Systolic blood pressure 122 mm[Hg] Halle Brady Other [facility] Other 05-10-2021 10:15-0400 Body height 160.02 cm Melodie Marlyn Other [facility] Other 05-10-2021 10:15-0400 Body mass index (BMI) [Ratio] 23.91 kg/m2 Melodie Marlyn Other [facility] Other 05-10-2021 10:15-0400 Body temperature 97.5 [degF] Melodie Marlyn Other [facility] Other 05-10-2021 10:15-0400 Body weight 61.24 kg Melodie Marlyn Other [facility] Other 05-10-2021 10:15-0400 Respiratory rate 18 /min Melodie Marlyn Other [facility] Other 05-10-2021 10:15-2600 SaO2% (BldA) [Mass fraction] 98 % Melodie Marlyn Other [facility] Other Encounters Encounter Date Encounter Type Care Provider Facility Start: 07-13-2024 End: 07-13-2024 ambulatory [facility] Start: 07-13-2024 End: 07-13-2024 ambulatory [facility] Start: 07-13-2024 End: 07-13-2024 Office outpatient visit 15 minutes Bushra Alegre 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-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 SPECIALIST Work Phone: [facility] Obstetrics/Gynecology Comment on above: Routine screening fo r STI (sexually transmitted infection) (Primary Dx); History of chlamydia infection Start: 07-13-2024 End: 07-13-2024 ambulatory [facility] Start: 06-16-2024 End: 06-17-2024 Telephone encounter Tesha Gallito BASHIR Work Phone: [facility] Comment on above: Follow-up Start: 06-09-2024 End: 06-09-2024 ambulatory [facility] Start: 06-08-2024 End: 06-08-2024 Orders Only Bushra Alegre TOLL 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-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 SPECIALIST Work Phone: [facility] Comment on above: Screening examinatio n for STI (Primary Dx) Start: 06-04-2024 End: 06-04-2024 Orders Only Bushra Alegre TOLL 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-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 SPECIALIST Work Phone: [facility] Comment on above: Chlamydia (Primary D x) Start: 06-03-2024 Encounter for gynecological examination (general) (routine) without abnormal findings [facility] Start: 06-03-2024 End: 06-03-2024 Initial preventive medicine new pt age 18-39yrs Bushra Alegre TOLL 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-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 SPECIALIST Work Phone: [facility] Obstetrics/Gynecology Comment on above: Women's annual routi ne gynecological examination (Primary Dx); Standardized adult depression screening tool completed; Well woman exam; Cervical cancer screening; Oral contraceptive pill surveillance; Routine screening for STI (sexually transmitted infection) Start: 06-03-2024 End: 06-03-2024 Patient encounter procedure Bushra Alegre TOLL 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 SPECIALIST Work Phone: [facility] Work Phone: Start: 06-03-2024 End: 06-03-2024 ambulatory [facility] Start: 06-03-2024 End: 06-03-2024 ambulatory BUSHRA MARIE [facility] Start: 05-11-2024 End: 05-11-2024 Telephone encounter Nyla Borja CMA [facility] Start: 05-06-2024 End: 05-06-2024 ambulatory [facility] Start: 05-06-2024 End: 05-06-2024 ambulatory [facility] Comment on above: Acute pharyngitis, u nspecified etiology (Primary Dx) Start: 04-28-2024 End: 04-28-2024 ambulatory [facility] Start: 04-14-2024 End: 04-14-[address] [facility] Start: 04-09-2024 End: 04-09-2024 ambulatory [facility] Work Phone: Start: 04-09-2024 End: 04-09-2024 Patient encounter procedure [facility] Work Phone: Start: 09-12-2022 End: 09-12-2022 ambulatory Halle Brady Other [facility] Other Start: 09-12-2022 Encounter for genera l adult medical examination without abnormal findings Halle Brady [facility] Start: 09-12-2022 Initial preventive medicine new pt age 18-39yrs Halle Brady [facility] Start: 05-10-2021 (URG) Urgent Care Visit Melodie Pardeep edouard [facility] Start: 05-31-2020 Office outpatient vi sit 15 minutes Mari Mcdonald Other [facility] Start: 05-02-2020 Office outpatient ne w 30 minutes Mari Mcdonald Other [facility] Office Start: 08-09-2017 End: 08-09-2017 Ambulatory Vignesh Bynum Facility:[facility] Start: 02-09-2017 End: 02-09-2017 Ambulatory DANA MARINA Facility:[facility] Procedures Date Procedure Procedure Detail Performing Clinician Start: 06-03-2024 Adult depression scr eening assessment Bushra Alegre TOLL 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CensorNet Work Phone: Start: 06-03-2024 Microscopic observat ion [Identifier] in Cervix by Cyto stain Bushra Alegre [facility] Work Phone: Start: 04-28-2024 Adult depression scr eening assessment Norma Pierce MD Work Phone: Start: 05-31-2020 Doc meds verified w/ pt or re Mari Mcdonald Start: 05-02-2020 Doc meds verified w/ pt or re Mari Mcdonald Plan of Treatment Date Care Activity Detail Author Start: 06-03-2027 Screening for malign ant neoplasm of cervix Pap Smear [facility] Start: 06-03-2025 Adult BMI Screening Adult BMI Screen ing [facility] Start: 06-03-2025 Depression Screening Depression Scre ening [facility] Start: 06-03-2025 Screening for Chlamy kian trachomatis Chlamydia Screening [facility] Start: 06-03-2025 Tobacco Screening Tobacco Screening [facility] Start: 04-28-2025 Adult BMI Screening Adult BMI Screen ing [facility] Start: 04-28-2025 Depression Screening Depression Scre ening [facility] Start: 04-28-2025 Tobacco Screening Tobacco Screening [facility] Start: 12-22-2024 DTaP,Tdap and Td Vaccines (7 - Td or Tdap) DTaP,Tdap and Td Vaccines (7 - Td or Tdap) [facility] Start: 07-13-2024 End: 07-13-2025 Chlamydia/GC by PCR Sandor Swab Chlamydia/GC by PCR Sandor Swab Microbiology Routine Routine screening for STI (sexually transmitted infection) Expected: 07/13/2024 (Approximate), Expires: 07/13/[address] [facility] Comment on above: Expected: 07/13/2024 (Approximate), Expires: 07/13/2025 Start: 07-13-2024 End: 07-13-2025 Trichomonas by PCR Trichomonas by PCR Microbiology Routine Routine screening for STI (sexually transmitted infection) Expected: 07/13/2024 (Approximate), Expires: 07/13/2025 [facility] Work Phone: Comment on above: Expected: 07/13/2024 (Approximate), Expires: 07/13/2025 Start: 06-25-2024 End: 06-25-2024 Patient encounter procedure 06/25/2024 9:15 AM EST Office Visit [facility] [address] [place] [address] Bushra Alegre, TOLL 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-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 SPECIALIST [address] [place] [address] [facility] Obstetrics[facility]Gynecolog y Start: 05-14-2024 End: 05-14-2024 Patient encounter procedure 05/14/2024 8:30 AM EDT Office Visit [facility] [address] [place] [address] Grisel Owens, TOLL 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-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 SPECIALIST [address] [place], [place] [id number] [facility] Obstetrics/Gynecolog y Start: 03-15-2024 COVID-19 Vaccine ( season) COVID-19 Vaccine () [facility] Start: 03-15-2024 COVID-19 Vaccine ( season) COVID-19 Vaccine ( season) [facility] [facility] Start: 2023 Screening for malign ant neoplasm of cervix Pap Smear [facility] Start: 2020 Adult BMI Follow Up Plan Adult BMI Follow Up Plan [facility] Start: 2002 Screening for Chlamy kian trachomatis Chlamydia Screening [facility] End: 06-03-2025 Chlamydia/Gonorrhoeae by PCR, Fluid Chlamydia/Gonorrhoeae by PCR, Fluid Microbiology Routine Cervical cancer screening 1 Occurrences starting 06/03/2024 until 06/03/[address] [facility] Comment on above: 1 Occurrences starti ng 06/03/2024 until 06/03/2025 End: 06-03-2025 Cytopathology procedure, preparation of smear, genital source Pap Smear Pathology and Cytology Routine Cervical cancer screening 1 Occurrences starting 06/03/2024 until 06/03/2025 [employer] Work Phone: Comment on above: 1 Occurrences starti ng 06/03/2024 until 06/03/2025 End: 06-08-2025 Hepatitis B surface antigen Hepatitis B surface antigen Lab Routine Screening examination for STI 1 Occurrences starting 06/08/2024 until 06/08/2025 [facility] [employer] Comment on above: 1 Occurrences starti ng 06/08/2024 until 06/08/2025 End: 06-08-2025 Hepatitis C(HCV) Ab w/ Reflex to PCR Hepatitis C(HCV) Ab w/ Reflex to PCR Lab Routine Screening examination for STI 1 Occurrences starting 06/08/2024 until 06/08/2025 [employer] Work Phone: Comment on above: 1 Occurrences starti ng 06/08/2024 until 06/08/2025 End: 06-08-2025 HIV 1&2 AB/AG Screen (P24 AG) HIV 1&2 AB/AG Screen (P24 AG) Lab Routine Screening examination for STI 1 Occurrences starting 06/08/2024 until 06/08/2025 [facility]: 1 Occurrences starti ng 06/08/2024 until 06/08/2025 End: 06-08-2025 Syphilis Total(Unknown Syphilis Status) Syphilis Total(Unknown Syphilis Status) Lab Routine Screening examination for STI 1 Occurrences starting 06/08/2024 until 06/08/[address] [facility] Comment on above: 1 Occurrences starti ng 06/08/2024 until 06/08/2025 End: 06-03-2025 Vaginitis Panel PCR Vaginitis Panel PCR Microbiology Routine Routine screening for STI (sexually transmitted infection) 1 Occurrences starting 06/03/2024 until 06/03/[address] [facility] Comment on above: 1 Occurrences starti ng 06/03/2024 until 06/03/2025 Immunizations Immunization Date Immunization Notes Care Provider Fa catalina 04-28-2024 influenza, injectabl e, madin delores canine kidney, preservative free Muroland Pierce MD Work Phone: [facility] [facility] Payers Date Payer Category Payer Commercial Managed C are - PPO [employer] [id number] 2023 Unknown [id number] 2021 Blue Cross Blue Shie ld Managed Care - Other ANTHEM [id number] 2021 Unknown [id number] 2017 Self-pay 2016 Unknown 2002 Unknown [id number] Formerly [facility] 2002 Unknown [id number]. Formerly [facility] 2002 Unknown [id number]. Formerly [facility] 2002 Unknown [id number]. Formerly [facility] 2002 Unknown [id number]. Formerly [facility] 2002 Unknown [id number] 2002 Unknown [id number] 2002 Unknown [id number]. [facility] Unknown [id number]. Formerly [facility] 2002 Unknown [id number]. Formerly [facility] 2002 Unknown [id number]. Formerly [facility] Unknown [id number] Social History Date Type Detail Facility Unknown if ever smoked [facility] Other Start: 04-28-2024 End: 07-13-2024 [facility]igned At [facility] Start: 09-12-2022 End: 04-28-2024 Tobacco smoking status NHIS Never smoked tobacco (finding) [facility] Start: 2002 Sex Assigned At Female F [facility] Start: 04-28-2024 Tobacco use and exposure Smokeless tobacco non-user [facility] Start: 06-03-2024 End: 07-13-2024 Alcoholic beverage intake Current drinker of alcohol (finding) [facility] Start: 04-28-2024 End: 07-13-2024 History of Social function [facility] Adolescent depressio n screening assessment [address] [facility] Start: 04-28-2024 Alcohol Comment weekends [facility] Start: 2002 Sex assigned at Not on file P [facility] Start: 02-15-2015 Sex Female (finding) [facility] Clinical Notes 05-10-2021 to 07-13-2024 CARLOS Disla - 07/13/2024 9:00 AM ESTTelephone Encounter - Tesha Conti LPN - 06/16/2024 10:55 AM ESTTelephone Encounter - CARLOS Disla - 06/16/2024 10:55 AM EST Note Date & Type Note Facility 07-13-2024 History of Presen t illness Narrative Marion Hu is a 24 y.o. female. She presents for STD screening. Patient denies any symptoms or concerns. Annual ENVIRONMENTAL MARKETER exam 05/2024. Pap negative. 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 06-16-2024 Miscellaneous Notes Marion called asking to speak with Bushra Alegre prior to scheduling a follow-up with her. Pt reports she has some questions that she would like to ask, prior to scheduling. Her phone # is [phone]. Spoke with Marion. Will have her follow-up in 3 mos for follow-up STI screening. Attempted to contact Marion to schedule her 3 mo follow up, but there was no answer. LM asking for pt to contact the office to get scheduled with Bushra Alegre. Patient is scheduled for 06/25 follow-up for STD testing. documented in this encounter [facility] [employer] 06-16-2024 Telephone encounter Note Marion called asking to speak with Bushra Alegre prior to scheduling a follow-up with her. Pt reports she has some questions that she would like to ask, prior to scheduling. Her phone # is [phone]. [employer] Work Phone: 06-16-2024 Telephone encounter Note Spoke with Marion. Will have her follow-up in 3 mos for follow-up STI screening. [facility] 06-16-2024 Telephone encounter Note Attempted to contact Marion to schedule her 3 mo follow up, but there was no answer. LM asking for pt to contact the office to get scheduled with [facility]legre. [facility] 06-16-2024 Telephone encounter Note Patient is scheduled for 06/25 follow-up for STD testing. [facility] 06-08-2024 History of Presen t illness [...] Disla 06/08/24 1429 documented in this encounter [facility] 06-03-2024 History of Presen t illness Narrative Annual Well Woman Visit 06/03/2024 Talisha Hu is a 24 y.o. 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 Periods are regular every 28-30 days, [...] by dermatology. 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 VON PRITCHARD APRN-CNP 06/03/24 1054 documented in this encounter [facility] 05-11-2024 Miscellaneous Notes ----- Message from Dr. Norma Pierce MD sent at 05/10/2024 2:00 PM EDT ----- Abnormal result. Please call patient and share they likely have an infection of Morov[place] (EBV virus). At this stage no additional treatment is necessary, it will self resolve but does take 4-8 weeks. Advil and tylenol are ok to use. NO Aspirin use. Would still ask her to continue the anti allergy pill. NORMA Hobbs MD Called patient and informed her. She stated understanding. documented in this encounter [facility] 05-11-2024 Telephone encounter Note ----- Message from Dr. Norma Pierce MD sent at 05/10/2024 2:00 PM EDT ----- Abnormal result. Please call patient and share they likely have an infection of [place] (EBV virus). At this stage no additional treatment is necessary, it will self resolve but does take 4-8 weeks. Advil and tylenol are ok to use. NO Aspirin use. Would still ask her to continue the anti allergy pill. NORMA Hobbs MD [facility] 05-11-2024 Telephone encounter Note Called patient and informed her. She stated understanding. [facility] 05-06-2024 History of Presen t illness Narrative Venipuncture performed in the right arm, no adverse reactions. documented in this encounter [facility] 09-12-2022 Evaluation note Encounter Date Diagnosis Assessment Notes Sep, Well adult exam (ICD-10 - Z00.00) completed forms for nursing clinicals - cleared to proceed. [facility] Other 10-27-2021 Evaluation note* Encounter Date Diagnosis [...] Patient care instructions given in writting by [facility] Care At Home document. [facility] Other Evaluation note* Diagnosis Onset Date Resolution Status Lymph node enlargement acute [facility] Work Phone: Evaluation note* Diagnosis Routine screening for STI (sexually transmitted infection)- Primary Screening examination for venereal disease History of chlamydia infection documented in this encounter [facility]* Diagnosis Acute pharyngitis, unspecified etiology- Primary documented in this encounter [facility]* Diagnosis Chlamydia- Primary Other specified chlamydial infection, in conditions classified elsewhere and of unspecified site [facility] Diagnosis Women's annual routine gynecological examination- Primary Standardized adult depression screening tool completed Well woman exam Routine general medical examination at a health care facility Cervical cancer screening Screening for malignant neoplasm of the cervix Oral contraceptive pill surveillance Routine screening for STI (sexually transmitted infection) Screening examination for venereal disease documented in this encounter [facility]* Diagnosis Screening examination for STI- Primary [facility] Narrative - Reported* Type Description Date Medical History Acne [facility] Other InstructionsNot on filedocumented in this encounter [facility] on filedocumented in this encounter [facility] System[facility]ructionsNot on filedocumented in this encounter [facility] System[facility]ructionsNot on filedocumented in this encounter [facility] System[facility]ructionsNot on filedocumented in this encounter [facility] Summary Purpose Family History No Family History Records FoundNo Family History Records FoundNo Family History Records FoundNo Family History Records Found Advance Directives Advance Directive Response Recorded Date/ Time Advance Directives No March 9:28am Chief Complaint and Reason for Visit Chief Complaint Strep Throat Reason for Visit Lymph node enlargeme nt Additional Source Comments INFORMATION SOURCE (unrecogn ized section and content) DATE CREATED AUTHOR 01/06/[address] [facility] DATE CREATED AUTHOR AUTHOR'S ORGANIZ ATION 06/23/2024 [facility] DATE CREATED AUTHOR AUTHOR'S ORGANIZ ATION 07/13/2024 [facility] DATE CREATED AUTHOR AUTHOR'S ORGANIZ ATION 07/15/2024 [facility] REASON FOR VISIT (unrecogniz ed section and content) Reason Comments Screening for std Reason Comments Annual Exam Specialty Diagnoses / Procedures Referred By Lori t Referred To Contact Obstetrics & Gynecology / Obstetrics and Gynecology Diagnoses Well woman exam Cervical cancer screening Norma Pierce MD [address] [facility], [place] [address] Phone: tel: fax: Grisel Owens, TOLL 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-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 SPECIALIST [address] [place] [address] Phone: tel: fax: Referral ID Status Reason Start Date Expiration Date V isits Requested Visits Authorized [id number] Closed Specialty Services Required 04/28/2024 04/28/2025 1 1 Reason Onset Date Comments Follow-up 06/16/2024 Care Teams (unrecognized sec tion and content) Team Status: Active Member Role Status Dates Halle Brady MD Primary Care Provider Active Team Status: Inactive Member Role Status Dates Hlale Brady MD Primary Care Provide r, Attending Provider Active Start: April 09, 2024 End: April 09, 2024 Stud Master/Mistress Relationship Specialty Start Date End Date Norma Pierce MD [address] [place] [address] PCP - General Internal Medicine 04/28/24 Stud Master/Mistress Relationship Specialty Start Date End Date Norma Pierce MD [address], [place] [address] PCP - General Internal Medicine 04/28/24 Stud Master/Mistress Relationship Specialty Start Date End Date Norma Pierce MD [address], [place] [address] PCP - General Internal Medicine 04/28/24 Stud Master/Mistress Relationship Specialty Start Date End Date Norma Pierce MD [address], [place] [address] PCP - General Internal Medicine 04/28/24 Stud Master/Mistress Relationship Specialty Start Date End Date Norma Pierce MD [address] [place] [address] PCP - General Internal Medicine 04/28/24 Stud Master/Mistress Relationship Specialty Start Date End Date Norma Pierce MD [address], [place] [address] PCP - General Internal Medicine 04/28/24 Goals [...] BE BASED ON THE PRIMARY CLINICAL RECORDS. [employer] [facility]. provides no warranty or guarantee of the accuracy or completeness of information in this document.
[2024-09-07] MEDS: [UNRECOGNIZED DRUG - OTHER] IM (12:31)
== END 2024-09-07 10:34 | disposition home or self-care (01) ==
LOC: VACCLI 10:33
PROVIDERS: Visit Provider Nurse Practitioner Family
DX: Z23 Encounter for immunization (principal)
CPT/HCPCS: 90746

== ENCOUNTER 2025-02-03 09:43 | Outpatient (OUT) | payer SELFPAY ==
--- OUTSIDE RECORDS SUMMARY | 2025-02-03 09:47 | XMS_ITS | Encounter Summary ---
Author Organization [facility] tem Address [id number] [address] [place] [address] Care Team Providers Care Dust Handler Name Role Phone Norma Baires MD Primary Care Provider [phone] Encounter Details Date Type Department Care Team (Late st Contact Info) Description 06/08/2024 Telephone [facility] [address] [place] [phone] Yohana Hill RMA Social History Tobacco Use Types Packs/Day Years Used Date Smoking Tobacco: Never Smokeless Tobacco: Never Alcohol Use Standard Drinks/Week Comments Yes 0 (1 standard drink = 0.6 oz pur e alcohol) weekends PHQ-2 Answer Date Recorded Total Score 0 06/03/2024 Childcare Answer Date Recorded Childcare Unknown 12/23/2018 Employment Answer Date Recorded Employment Unknown 12/23/2018 Hunger Screening Answer Date Recorded Within the past 12 months we worried whether our food would run out before we got money to buy more. Never True 04/28/2024 Within the past 12 months th e food we bought just didn't last and we didn't have money to get more. Never True 04/28/2024 Comments No Sex and Gender Information Value Date Recorded Sex Assigned at Not on file Legal Sex Female 4:59 PM EDT Gender Identity Not on file Sexual Orientation Not on file documented as of this encounter Miscellaneous Notes * Telephone Encounter - JIMY Munoz - 06/08/2024 1:28 PM EST Patient was seen 06/03/2024 and was treated for Chlamydia. She has some questions if you can pleasecall her. documented in this encounter Plan of Treatment Upcoming Encounters Date Type Department Care Team (Late st Contact Info) Description 04/01/2025 3:15 PM EDT Office Visit [facility] [address] [place] [phone] Norma Baires MD [address] [place] [address] documented as of this encounter Visit Diagnoses Not on filedocumented in this encounter Additional Health Concerns Assessment Noted Time PHQ-9 Depression Total Score: 0 06/03/20 10:11 AM EST documented as of this encounter Care Teams Dust Handler Relationship Specialty Start Date End Date Norma Baires MD [address] [place] [address] PCP - General Internal Medicine 04/28/24 documented as of this encounter
--- OUTSIDE RECORDS SUMMARY | 2025-02-03 09:47 | XMS_ITS | Encounter Summary ---
Author Organization [facility] tem Address [id number] [address] [place] [address] Care Team Providers Care Cross Tie Maker Name Role Phone Norma Baires MD Primary Care Provider [phone] Encounter Details Date Type Department Care Team (Late st Contact Info) Description 06/15/2024 Telephone [facility] [address] [place] [phone] Reanna Valdez Social History Tobacco Use Types Packs/Day Years [...] encounter Miscellaneous Notes * Telephone Encounter - Reanna Valdez - 06/15/2024 2:58 PM EST Patient called had some follow up questions please return call * Telephone Encounter - CARLOS Disla - 06/15/2024 2:58 PM EST Returned patient's call, left message documented in this encounter Plan of Treatment Upcoming Encounters Date Type Department Care Team (Late st Contact Info) Description 04/01/2025 3:15 PM EDT Office Visit [facility] [address] [place] [address] [place] [address] Norma Baires MD [address] [facility] [address] [place], [place] [id number] documented as of this encounter Visit Diagnoses Not on filedocumented in this encounter Additional Health Concerns Assessment Noted Time PHQ-9 Depression Total Score: 0 06/03/20 10:11 AM EST documented as of this encounter Care Teams Cross Tie Maker Relationship Specialty Start Date End Date Norma Baires MD [address] [facility] [place], [place] [phone] PCP - General Internal Medicine 04/28/24 documented as of this encounter
[2025-02-03] MEDS: [UNRECOGNIZED DRUG - OTHER] IM (11:05)
== END 2025-02-03 09:44 | disposition home or self-care (01) ==
LOC: VACCLI 09:44
PROVIDERS: Visit Provider Nurse Practitioner Family
DX: Z23 Encounter for immunization (principal)
CPT/HCPCS: 90746